=== PATIENT | male | born 1980 | race Caucasian/White ===

== ENCOUNTER 2018-08-11 19:52 | Inpatient (IN) | payer OTHER ==
--- NOTE | 2018-08-11 20:07 | PDOC ---
Rapid Medical Evaluation Chief Complaint: Headache Time Seen by Provider: 08/11/18 20:06 Medical Evaluation: 08/11/18 20:12 38 year old male with nausea, vomiting, headache, neck pain and now with fever. PE: patient alert ox3. sick appearing. A: fever / sepsis ? P: labs blood culture urine culture patient to ER for further management of care. Discharge Disposition - Diagnosis Fever Qualifiers: Fever type: unspecified Qualified Code(s): R50.9 - Fever, unspecified - Referrals - Patient Instructions - Post Discharge Activity
[2018-08-11] MEDS ORDERED: ACETAMINOPHEN 500 MG TABLET (FP) PO ONE (20:13)
[2018-08-11 20:14] VITALS: BMI 21.7
--- NOTE | 2018-08-11 20:36 | PDOC ---
History of Present Illness - General Chief Complaint: Headache Stated Complaint: FEVER/WEAKNESS Time Seen by Provider: 08/11/18 20:06 - History of Present Illness Initial Comments: 08/11/18 21:22 The patient is a 38 year old male with a history of Brugada's s/p pacemaker who presents for evaluation of fever, headache, and neck pain. The patient reports a 2 day history of worsening associated nausea, headache, and severe neck pain. The patient developed a high fever today and initially presented to an urgent care for which he was treated with a muscle relaxant. He states that he did not take the muscle relaxant and presented to the ED due to worsening symptoms. He states that any movement of his neck worsens his headache and reports fevers and chills as well. He reports some cough and nasal congestion but otherwise denies SOB, chest pain, sore throat, vomiting, abdominal pain, or changes with urination or bowel movements. Past History - Past Medical History Allergies/Adverse Reactions: Allergies Allergy/AdvReac Type Severity Reaction Status Date / Time No Known Allergies Allergy Verified 08/11/18 20:09 Cardiac Disorders: Yes (pacemaker/defibrillar 2016) COPD: No - Surgical History Cardiac Surgery: Yes (brugada syndrome) - Suicide/Smoking/Psychosocial Hx Smoking History: Current every day smoker Number of Cigarettes Smoked Daily: 20 Information on smoking cessation initiated: No Hx Alcohol Use: No Drug/Substance Use Hx: No Review of Systems - Review of Systems Comments:: 08/11/18 21:28 Constitutional: Fevers, chills, fatigue, malaise HEENT: Nasal congestion. Neck pain. No Rhinorrhea, visual changes Cardiovascular: No chest pain, syncope, palpitations, lightheadedness Respiratory: Non-productive cough. No SOB, Hemoptysis, Gastrointestinal: No Abdominal pain, Nausea, Vomiting, Constipation, Diarrhea, Melena Genitourinary: No Dysuria, Frequency, Urgency, Hesitancy, Hematuria, Flank pain Musculoskeletal: No arthralgia Skin: No rashes, itching, bruising, pallor Neurologic: Headache. No Dizziness, Numbness, Weakness, or Tingling Psychiatric: No Hallucinations. No SI or HI *Physical Exam - Vital Signs Last Vital Signs Temp Pulse Resp BP Pulse Ox 103.0 F H 96 H 16 134/90 100 08/11/18 20:10 08/11/18 20:10 08/11/18 20:10 08/11/18 20:10 08/11/18 20:10 - Physical Exam Comments: 08/11/18 21:31 General Appearance: Nourished. No Apparent Distress HEENT: EOMI, RAFFY. No Pharyngeal Erythema, Tonsillar Exudate, Tonsillar Erythema Neck: Nuchal rigidity noted on exam. No Cervical Lymphadenopathy Respiratory/Chest: Lungs Clear, Normal Breath Sounds. No Crackles, Rales, Rhonchi, Wheezing Cardiovascular: Regular Rhythm, Regular Rate. No Murmur, Gallops, Rubs Gastrointestinal/Abdominal: Normal Bowel Sounds, Soft. No Guarding, Rebound, Tenderness Musculoskeletal: No CVA Tenderness Extremity: Normal Capillary Refill Integumentary: Normal Color, Dry, Warm Neurologic: clinical nurse occupational medicine II-XII NML intact, Fully Oriented, Alert, Normal Mood/Affect, Normal Response, Motor Strength 5/5. Procedures - Additional Procedures Additional Procedures: lumbar puncture (3 drops obtained from Lumbar Puncture before flow of CSF stopped) Heart Score/ECG Review #1 ECG reviewed & interpreted by me at: 22:42 General ECG Interpretation: Sinus Rhythm, Normal Rate, Normal Intervals, No acute ischemic changes 08/11/18 22:42 Sinus Rhythm No Acute ST changes HR 96 QRS 92 QTc 434 ED Treatment Course - LABORATORY CBC & Chemistry Diagram: 08/11/18 21:30 08/11/18 21:30 Medical Decision Making - Medical Decision Making 08/11/18 21:32 The patient is a 38 year old male with a history of Brugada's s/p pacemaker who presents for evaluation of fever, headache, and neck pain. Differential includes but is not limited to: Sepsis, Pneumonia, Meningitis, Infectious, Metabolic Derangement. Given the patient's history and physical exam, we will obtain a cbc, cmp, troponin, lactate, blood cultures, UA, urine cultures, coags , chest plain film, head ct to evaluate further. We will treat with tylenol, iv fluids, decadron, vanc, ceftriaxone, asyclovir and continue to closely monitor and reassess while here in the ED. 08/11/18 23:54 CBC is unremarkable. CMP is unremarkable. Troponin is elevated to 0.68. Head CT demonstrates chronic sinusitis but is otherwise unremarkable as read by our radiologist. Chest plain film is unremarkable. Bedside Echo demonstrates normal cardiac contractility and is otherwise unremarkable. Lumbar Puncture was attempted and we obtained 3 drops of csf before flow stopped. CSF cell count demonstrates 1 wbc and 10 rbc. The patient reports some improvement in his symptoms. He does not have signs of NMS or seratonin syndrome on exam. It is unclear at this time as to the source of the patient's fever. He will require admission for further management. We will consult with cardiology regarding his elevated troponin. *DC/Admit/Observation/Transfer Diagnosis at time of Disposition: Elevated troponin Fever Qualifiers: Fever type: unspecified Qualified Code(s): R50.9 - Fever, unspecified Sepsis Qualifiers: Sepsis type: sepsis due to unspecified organism Qualified Code(s): A41.9 - Sepsis, unspecified organism - Discharge Dispostion Condition at time of disposition: Stable Decision to Admit order: Yes - Referrals - Patient Instructions - Post Discharge Activity
[2018-08-11] MEDS ORDERED: METOCLOPRAMIDE HCL INJECTION 10 MG/2 ML VIAL IVPUSH ONE (20:39)
[2018-08-11] MEDS ORDERED: SODIUM CHLORIDE 1,000 ML IV STA (20:46)
[2018-08-11] MEDS ORDERED: CEFTRIAXONE 2 GM-D5W BAG 2 GM/50 ML BAG IVPB ONE (21:06)
[2018-08-11] MEDS ORDERED: ACETAMINOPHEN 1000 MG/100 ML VIAL (NON FORMULARY) IVPB ONE (21:06)
[2018-08-11] MEDS ORDERED: DEXAMETHASONE SOD PHOSPHATE 10 MG/1 ML VIAL IVPUSH ONE (21:06)
[2018-08-11] MEDS ORDERED: VANCOMYCIN 1 GM in D5W (PRE-DOCKED) 1,000 MG/250 ML IVPB ONE (21:06)
[2018-08-11] MEDS ORDERED: ACYCLOVIR INJECTION 600 MG in DEXTROSE 5%-WATER - 100 ML IVPB ONE (21:07)
[2018-08-11] MEDS ORDERED: ACETAMINOPHEN INJECTION 100 ML IVPB ONE (21:15)
[2018-08-11] MEDS ORDERED: DEXAMETHASONE SOD PHOSPHATE 10 MG/1 ML VIAL ONE (21:15)
[2018-08-11] MEDS ORDERED: METOCLOPRAMIDE HCL INJECTION 10 MG/2 ML VIAL ONE (21:38)
--- NOTE | 2018-08-11 21:42 | PDOC ---
Documentation entered by Yoel Lai SCRIBE, acting as scribe for Guerda Shaikh DO. Guerda Shaikh DO: This documentation has been prepared by the Ming schultz Nirvannie, SCRIBE, under my direction and personally reviewed by me in its entirety. I confirm that the documentation accurately reflects all work, treatment, procedures, and medical decision making performed by me. Attending Attestation - Resident Resident Name: Mane Davenport - ED Attending Attestation I have performed the following: I have examined & evaluated the patient, The case was reviewed & discussed with the resident, I agree w/resident's findings & plan - HPI HPI: 08/11/18 22:30 The patient is a 38 year old male, with a significant past medical history of Brugada (s/p pacemaker) and vertigo, who presents to the emergency department with, 2 days of worsening nausea, headache, and neck pain with new onset of fever (Tmax 103F). Patient notes prior to the onset of his symptoms approximately 4 days ago he had diarrhea for 1 day. Patient notes going to urgent care at which time he was diagnosed on a muscle relaxant. He notes secondary to the onset of fevers and chills he reported to the ED for further evaluation. He denies any recent diarrhea or constipation. He denies any recent chest pain. He denies any recent dysuria, frequency, urgency or hematuria. Allergies: NKDA - Physicial Exam PE: 08/11/18 22:30 Constitutional: +Hot to touch. Awake, alert, oriented. No acute distress. Head: Normocephalic. Atraumatic Eyes: +Injected sclera. PERRL. EOMI. ENT: Mucous membranes are moist and intact. Posterior pharynx without exudates or erythema. Uvula midline. Neck: +Nuchal rigidity. Cardiovascular: +Tachycardic Distal pulses are 2+ and symmetric. Pulmonary/Chest: No evidence of respiratory distress. Clear to auscultation bilaterally No wheezing, rales or rhonchi. Abdominal: Soft and non-distended. There is no tenderness. No rebound, guarding or rigidity. No organomegaly. No palpable masses. Good bowel sounds. Back: No CVA tenderness. Musculoskeletal: No edema. No cyanosis. No clubbing. Full range of motion in all extremities. No calf tenderness. Radial/pedal pulses are intact and 2+ bilaterally Skin: Skin is warm and dry. No petechiae. No purpura. Neurological: +Brudzinski's sign. Negative Kernig sign. Alert and oriented to person, place, and time. Cranial nerves II-XII are grossly intact. Normal speech. Strength is grossly symmetric. No sensory deficits. Psychiatric: Good eye contact. Normal interaction, affect and behavior. - Critical Care Time Total Critical Care Time: 35 Critical Care Statement: The care of this patient involved high complexity decision making to prevent further life threatening deterioration of the patient 's condition and/or to evaluate & treat vital organ system(s) failure or risk of failure. - Medical Decision Making 08/11/18 21:37 I, Dr. Guerda Shaikh, DO, attest that this document has been prepared under my direction and personally reviewed by me in its entirety. I further attest, that it accurately reflects all work, treatment, procedures and medical decision -making performed by me. 08/11/18 21:37 a/p: 38yo male with stern and neck pain x 3 days and a fever today -nuchal rigidity on exam -concern for meningitis -labs ordered, flu ordered, cxr, ua -ct head -seen at Urgent care and given a muscle relaxer for the neck pain - states developed the fever right after urgent care -cultures ordered -will start decadron, abx, antivirals -will perform LP -will monitor and reassess -ivf hydraiton, tylenol 08/11/18 21:40 flu negative 08/11/18 21:42 hx of brugada, cxr clear, defibrillator in place 08/11/18 23:17 only 3 drops of clear spinal fluid removed, then became dry tap trop 0.68 will need admission pending labs 11:44pm Call placed to Dr. Andersen, hydraulic jack mechanic button tufting machine operator, made aware Dr. Bates button tufting machine operator, awaiting call back. 08/12/18 00:06 elevated trop ua negative flu negative cxr clear 1wbc on lp, 10rbc chronic sinusitis on ct cultures pending 08/12/18 00:09 no NMS signs, no serotonin syndrome 08/12/18 00:18 case discussed with MARKOS who accepts pt to service *DC/Admit/Observation/Transfer Diagnosis at time of Disposition: Elevated troponin Fever Qualifiers: Fever type: unspecified Qualified Code(s): R50.9 - Fever, unspecified Sepsis Qualifiers: Sepsis type: sepsis due to unspecified organism Qualified Code(s): A41.9 - Sepsis, unspecified organism - Discharge Dispostion Condition at time of disposition: Guarded Decision to Admit order: Yes - Referrals - Patient Instructions - Post Discharge Activity Heart Score/ECG Review - ECG Intrepretation Comment:: 08/11/18 22:40 sinus at 96, nl axis, nl interval, t wave flattening in the inferior leads, no acute st changes
[2018-08-11 22:29] LABS: BASO % 0.3 % (0-2.0); EOS % 0.1 % (0-4.5); HEMATOCRIT 37.1 % (35.4-49); HEMOGLOBIN 12.9 GM/dL (11.7-16.9); MCH 33.3 pg (25.7-33.7); MCHC 34.8 g/dl (32.0-35.9); MEAN CELL VOLUME 95.7 fl (80-96); MEAN PLT VOLUME 7.6 fl (7.5-11.1); MONO % 5.5 % (3.8-10.2); NEUT % 77.1 % (42.8-82.8); PLATELET COUNT 166 K/MM3 (134-434); RBC 3.88 M/mm3 (4.00-5.60); RDW 13.7 % (11.9-15.9); WHITE BLOOD COUNT 5.7 K/mm3 (4.0-10.0)
[2018-08-11 22:41] LABS: INR 1.17 (0.83-1.09); PROTHROMBIN TIME (PATIENT) 13.8 SEC (9.7-13.0)
[2018-08-11 22:44] LABS: ACTIVATED PTT 32.9 SECONDS (25.2-36.5)
[2018-08-11 22:54] LABS: ALBUMIN 3.2 g/dl (3.4-5.0); ALK PHOS 56 U/L (45-117); ANION GAP 6 MMOL/L (8-16); BILIRUBIN,TOTAL 0.5 mg/dL (0.2-1); BLOOD UREA NITROGEN 16 mg/dL (7-18); CALCIUM 7.9 mg/dL (8.5-10.1); CHLORIDE 100 mmol/L (98-107); CO2 27 mmol/L (21-32); CREATININE 0.6 mg/dL (0.55-1.3); GLUCOSE,RANDOM 83 mg/dL (74-106); POTASSIUM 3.8 mmol/L (3.5-5.1); SGOT/AST 20 U/L (15-37); SGPT/ALT 23 U/L (13-61); SODIUM 134 mmol/L (136-145); TOT PROT 6.6 g/dl (6.4-8.2)
[2018-08-11] MEDS ORDERED: LIDOCAINE HCL 1%, 10 MG/ML (20ML VIAL) ONE (22:56)
[2018-08-11] MEDS ORDERED: CEFTRIAXONE 2 GM/100 ML BAG IVPB ONE (23:39)
[2018-08-11 23:49] LABS: CSF APPEARANCE CLEAR; CSF COLOR COLORLESS; CSF WBC 1
[2018-08-12] LABS: PH,URINE 5.5 (5.0-8.0); URINE APPEARANCE CLEAR; URINE BILIRUBIN NEGATIVE (NEGATIVE); URINE COLOR YELLOW; URINE GLUCOSE (UA) NEGATIVE (NEGATIVE); URINE KETONE NEGATIVE (NEGATIVE); URINE LEUK ESTERASE NEGATIVE (NEGATIVE); URINE NITRITE NEGATIVE (NEGATIVE); URINE PROTEIN NEGATIVE (NEGATIVE)
[2018-08-12 00:09] LABS: COCAINE, UR NEGATIVE ng/ml (CUTOFF=300); METHADONE, UR NEGATIVE ng/ml (CUTOFF=300); OPIATES, URI NEGATIVE ng/ml (CUTOFF=300); PHENCYCLIDINE,URINE NEGATIVE ng/ml (CUTOFF=25); URINE AMPHETAMINES NEGATIVE ng/ml (CUTOFF=500); URINE BARBITURATES NEGATIVE ng/ml (CUTOFF=200); URINE BENZODIAZEPINES NEGATIVE ng/ml (CUTOFF=200)
--- NOTE | 2018-08-12 00:18 | PN ---
Teaching Attending Note Name of Resident: Mane Lucas ATTENDING PHYSICIAN STATEMENT I saw and evaluated the patient. I reviewed the resident's note and discussed the case with the resident. I agree with the resident's findings and plan as documented. SUBJECTIVE: Patient is a 38 year old man with a PMH of Brugada syndrome (s/p pacemaker), marijuana use and tobacco use who presents for evaluation of fever, headache, and neck pain. The patient reports a 2 day history of worsening associated nausea, headache, and severe neck pain. The patient developed a high fever today and initially presented to an urgent care for which he was treated with a muscle relaxant. He states that he did not take the muscle relaxant and presented to the ED due to worsening symptoms. He states that any movement of his neck worsens his headache and reports fevers and chills as well. Also had a bout of chest tightness in the ER. He reports some cough and nasal congestion but otherwise denies SOB, sore throat, vomiting, abdominal pain, or changes with urination or bowel movements. LP was done in he ER and he was started on empiric antibiotics for meningitis. OBJECTIVE: Alert Vital Signs Period Temp Pulse Resp BP Sys/Stewart Pulse Ox Last 24 Hr 103.0 F 96 16 134/90 100 HEENT: No Jaundice, eye redness or discharge, PERRLA, EOMI. Normocephalic, atraumatic. External ears are normal and hearing is grossly intact. No nasal discharge. Neck: Neck stiffness with tenderness on movement. No palpable adenopathy or thyromegaly. No JVD Chest: Good effort. Clear to auscultation and percussion. Heart: Regular. No S3, rub or murmur Abdomen: Not distended, soft, nontender and no HSM. No rebound or guarding. Normal bowel sounds. Ext: Peripheral pulses intact. No leg edema. Skin: Warm and dry. No petechiae, rash or ecchymosis. Neuro: Alert. Oriented x3. CN 2-12 grossly intact. Sensation grossly intact in all four extremities and DTR are symmetric. Psych: Appropriate mood and affect. Good insight. Current Medications Generic Name Dose Route Start Last Admin Trade Name Freq PRN Reason Stop Dose Admin Enoxaparin Sodium 40 mg 08/12/18 10:00 Lovenox - SQ DAILY HAJA Abnormal Lab Results 08/11/18 08/11/18 08/11/18 21:30 21:30 21:30 RBC 3.88 L PT with INR 13.80 H INR 1.17 H Sodium 134 L Anion Gap 6 L Calcium 7.9 L Troponin I Albumin 3.2 L Ur Specific Call U Marijuana (THC) Screen 08/11/18 08/11/18 08/11/18 21:30 23:35 23:35 RBC PT with INR INR Sodium Anion Gap Calcium Troponin I 0.68 H* Albumin Ur Specific Call 1.009 L U Marijuana (THC) Screen Positive A* ASSESSMENT AND PLAN: 1. Rule out Meningitis - LP done. Flu swab is negative. Presentation is atypical , but has been started on Vancomycin, Rocephin and Acyclovir pending CSF analysis. Also got dexamethasone in the ER. Head CT shows chronic sinusitis. Will get CT of neck (soft tissue and C-spine). Consult ID and neurology. 2. Hypoalbuminemia - Possibly due to combined effects of malnutrition and inflammation associated with comorbid chronic conditions. Will ensure adequate dietary protein intake and also consult heater planer operator. 3. Elevated troponin - No changes of ischemia on EKG. Admit to telemetry, trend troponin, get ECHO and consult cardiology. 4. DVT prophylaxis - Lovenox 40 mg SQ q 24 hours. 5. Advance directives - Full code
[2018-08-12] MEDS ORDERED: VANCOMYCIN 1 GRAM (PRE-DOCKED) 1,000 MG/250 ML BAG IVPB ONE (00:35)
--- NOTE | 2018-08-12 01:12 | HP ---
CHIEF COMPLAINT: fever, neck pain PCP: HISTORY OF PRESENT ILLNESS: Patient is a 38 y/o M w/ PMHx Brugada's syndrome s/p PPM in 2016 p/w 2-3 day h/ o headache, severe neck pain, nausea, developed high fever today which prompted ED visit. Had seen urgent care and was prescribed muscle relaxant which he did not take. Febrile to 103, HR 96, otherwise stable vitals on presentation. Toxic appearing on presentation w/ pronounced nuchal rigidity, pain on flexion, and photophobia per ED sign out. LP was performed, retrieved only a few drops of CSF , cell counts 1 WBC and 10 RBC. Tox screen positive for cannabis (Pt admitted to use). Initial troponin 0.68. EKG NSR with normal intervals and QTc. POC echocardiogram was normal per ED signout. Cultures pending. Pt affirms use of haldol and Zyprexa in for issues related to depression but denies any recent use of neuroleptics or anti-depressants, no changes in diet or consumption of high-tyramine foods. Pt affirms "chest tightness" associated with exacerbations of neck pain. Given Acyclovir, ceftriaxone, vancomycin dexamethasone, Ofirmev, Reglan, NS bolus in ED. Recent Travel: PAST MEDICAL HISTORY: As per HPI PAST SURGICAL HISTORY: Social History: Smoking: daily ~ 20 cigarettes Alcohol: no Drugs: cannabis Family History: Allergies No Known Allergies Allergy (Verified 08/11/18 20:09) HOME MEDICATIONS: REVIEW OF SYSTEMS As per HPI PHYSICAL EXAMINATION Vital Signs - 24 hr 08/11/18 20:10 Temperature 103.0 F H Pulse Rate 96 H Respiratory 16 Rate Blood Pressure 134/90 O2 Sat by Pulse 100 Oximetry (%) GENERAL: A&Ox3, in significant distress HEAD: NC/AT EYES: +photophobia, PERRLA, EOMI EARS, NOSE, THROAT: Ears normal, nares patent, oropharynx clear without exudates. Moist mucous membranes. NECK: significant rigidity and pain with any motion of neck, pain greatest with flexion, negative Brudzinski's sign LUNGS: CTA b/l HEART: borderline tachycardic no m/r/g ABDOMEN: +bs, soft, NT, ND MUSCULOSKELETAL: Normal range of motion at all joints. No bony deformities or tenderness. No CVA tenderness. UPPER EXTREMITIES: 2+ pulses, warm, well-perfused. No cyanosis. No clubbing. No peripheral edema. LOWER EXTREMITIES: 2+ pulses, warm, well-perfused. No calf tenderness. No peripheral edema. 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 Laboratory Results - last 24 hr 08/11/18 08/11/18 08/11/18 20:15 21:30 21:30 WBC 5.7 RBC 3.88 L Hgb 12.9 Hct 37.1 MCV 95.7 MCH 33.3 MCHC 34.8 RDW 13.7 Plt Count 166 MPV 7.6 Absolute Neuts (auto) 4.4 Neutrophils % 77.1 Lymphocytes % 17.0 Monocytes % 5.5 Eosinophils % 0.1 Basophils % 0.3 Nucleated RBC % 0 PT with INR 13.80 H INR 1.17 H PTT (Actin FS) 32.9 Sodium Potassium Chloride Carbon Dioxide Anion Gap BUN Creatinine Creat Clearance w eGFR Random Glucose Lactic Acid Calcium Total Bilirubin AST ALT Alkaline Phosphatase Troponin I Total Protein Albumin Urine Color Urine Appearance Urine pH Ur Specific Orestes Urine Protein Urine Glucose (UA) Urine Ketones Urine Blood Urine Nitrite Urine Bilirubin Urine Urobilinogen Ur Leukocyte Esterase CSF Appearance CSF Color CSF WBC CSF RBC CSF Neutrophils CSF Lymphocytes CSF Eosinophils CSF Basophils CSF Macrophages CSF Plasma Cells CSF Diff Comment CSF Comment CSF Glucose CSF Total Protein Opiates Screen Methadone Screen Barbiturate Screen Phencyclidine Screen Ur Amphetamines Screen MDMA (Ecstasy) Screen Benzodiazepines Screen Cocaine Screen U Marijuana (THC) Screen Influenza A (Rapid) Negative Influenza B (Rapid) Negative 08/11/18 08/11/18 08/11/18 21:30 21:30 21:30 WBC RBC Hgb Hct MCV MCH MCHC RDW Plt Count MPV Absolute Neuts (auto) Neutrophils % Lymphocytes % Monocytes % Eosinophils % Basophils % Nucleated RBC % PT with INR INR PTT (Actin FS) Sodium 134 L Potassium 3.8 Chloride 100 Carbon Dioxide 27 Anion Gap 6 L BUN 16 Creatinine 0.6 Creat Clearance w eGFR 150.78 Random Glucose 83 Lactic Acid 0.8 Calcium 7.9 L Total Bilirubin 0.5 AST 20 ALT 23 Alkaline Phosphatase 56 Troponin I 0.68 H* Total Protein 6.6 Albumin 3.2 L Urine Color Urine Appearance Urine pH Ur Specific Orestes Urine Protein Urine Glucose (UA) Urine Ketones Urine Blood Urine Nitrite Urine Bilirubin Urine Urobilinogen Ur Leukocyte Esterase CSF Appearance CSF Color CSF WBC CSF RBC CSF Neutrophils CSF Lymphocytes CSF Eosinophils CSF Basophils CSF Macrophages CSF Plasma Cells CSF Diff Comment CSF Comment CSF Glucose CSF Total Protein Opiates Screen Methadone Screen Barbiturate Screen Phencyclidine Screen Ur Amphetamines Screen MDMA (Ecstasy) Screen Benzodiazepines Screen Cocaine Screen U Marijuana (THC) Screen Influenza A (Rapid) Influenza B (Rapid) 08/11/18 08/11/18 08/11/18 23:15 23:35 23:35 WBC RBC Hgb Hct MCV MCH MCHC RDW Plt Count MPV Absolute Neuts (auto) Neutrophils % Lymphocytes % Monocytes % Eosinophils % Basophils % Nucleated RBC % PT with INR INR PTT (Actin FS) Sodium Potassium Chloride Carbon Dioxide Anion Gap BUN Creatinine Creat Clearance w eGFR Random Glucose Lactic Acid Calcium Total Bilirubin AST ALT Alkaline Phosphatase Troponin I Total Protein Albumin Urine Color Yellow Urine Appearance Clear Urine pH 5.5 Ur Specific Orestes 1.009 L Urine Protein Negative Urine Glucose (UA) Negative Urine Ketones Negative Urine Blood Negative Urine Nitrite Negative Urine Bilirubin Negative Urine Urobilinogen 1.0 Ur Leukocyte Esterase Negative CSF Appearance Clear CSF Color Colorless CSF WBC 1 CSF RBC 10 CSF Neutrophils No Result Required. CSF Lymphocytes No Result Required. CSF Eosinophils No Result Required. CSF Basophils No Result Required. CSF Macrophages No Result Required. CSF Plasma Cells No Result Required. CSF Diff Comment No Result Required. CSF Comment No Result Required. CSF Glucose CSF Total Protein Opiates Screen Negative Methadone Screen Negative Barbiturate Screen Negative Phencyclidine Screen Negative Ur Amphetamines Screen Negative MDMA (Ecstasy) Screen Negative Benzodiazepines Screen Negative Cocaine Screen Negative U Marijuana (THC) Screen Positive A* Influenza A (Rapid) Influenza B (Rapid) ASSESSMENT/PLAN: 38 y/o M w/ PMHx Brugada's syndrome s/p PPM in 2016 p/w 2-3 day h/o headache, severe neck pain, nausea, developed high fever today presenting at 103 #A: -r/o meningitis -LP results benign -significant troponemia -given acyclovir, ceftriaxone, vancomycin, reglan, dexamethasone in ED -minimal suspicion of NMS/Serotonin syndrome #P: -CT neck soft tissue and c-spine -MRI brain w/ and w/o -trend troponins -repeat EKG -cardiology consulted by ED -no IVF -f/u BMP, Mg, Phos -regular diet -Lovenox for DVT PPx -full code -admit to med/surg Visit type - Emergency Visit Emergency Visit: Yes Care time: The patient presented to the Emergency Department on the above date and was hospitalized for further evaluation of their emergent condition. - New Patient This patient is new to me today: Yes Date on this admission: 08/12/18 - Critical Care Critical Care patient: No
[2018-08-12] MEDS ORDERED: PT OWN MED DRAWER 7, Y5N ONE (02:58)
[2018-08-12 06:22] LABS: BASO % 0.1 % (0-2.0); HEMATOCRIT 38.1 % (35.4-49); HEMOGLOBIN 12.9 GM/dL (11.7-16.9); LYMPH % 9.1 % (8-40); MCH 32.4 pg (25.7-33.7); MCHC 33.9 g/dl (32.0-35.9); MEAN CELL VOLUME 95.7 fl (80-96); MEAN PLT VOLUME 7.7 fl (7.5-11.1); MONO % 4.3 % (3.8-10.2); NEUT % 86.5 % (42.8-82.8); PLATELET COUNT 159 K/MM3 (134-434); RBC 3.98 M/mm3 (4.00-5.60); RDW 13.8 % (11.9-15.9); WHITE BLOOD COUNT 7.8 K/mm3 (4.0-10.0)
[2018-08-12 06:55] LABS: ANION GAP 10 MMOL/L (8-16); BLOOD UREA NITROGEN 13 mg/dL (7-18); CALCIUM 7.6 mg/dL (8.5-10.1); CHLORIDE 108 mmol/L (98-107); CO2 22 mmol/L (21-32); CREATININE 0.7 mg/dL (0.55-1.3); GLUCOSE,RANDOM 156 mg/dL (74-106); MAGNESIUM 2.3 mg/dL (1.8-2.4); PHOSPHOROUS 2.7 mg/dL (2.5-4.9); SODIUM 139 mmol/L (136-145)
[2018-08-12 09:49] LABS: PH,URINE 6.5 (5.0-8.0); URINE APPEARANCE CLEAR; URINE BILIRUBIN NEGATIVE (NEGATIVE); URINE COLOR YELLOW; URINE GLUCOSE (UA) NEGATIVE (NEGATIVE); URINE KETONE NEGATIVE (NEGATIVE); URINE LEUK ESTERASE NEGATIVE (NEGATIVE); URINE NITRITE NEGATIVE (NEGATIVE); URINE PROTEIN NEGATIVE (NEGATIVE)
[2018-08-12 10:04] LABS: VENOUS PC02 32.5 mmHg (41-51); VENOUS PH 7.47 (7.31-7.41); VENOUS PO2 59.4 mmHg (30-40)
--- NOTE | 2018-08-12 10:09 | CON.CARD ---
Consult Consult Specialty:: Cardiology Referred by:: Dr. Desouza Reason for Consultation:: Brugada Syndrome and ICD, + TNI - History of Present Illness Chief Complaint: fever, headache History of Present Illness: The patient is a 38 year old male, with a significant past medical history of Brugada (s/p ICD) and vertigo, who presents to the emergency department with, 2 days of worsening nausea, headache, and neck pain with new onset of fever (Tmax 103F). Patient notes prior to the onset of his symptoms approximately 4 days ago he had diarrhea for 1 day. Patient notes going to urgent care at which time he was diagnosed on a muscle relaxant. He notes secondary to the onset of fevers and chills he reported to the ED for further evaluation. He denies any recent diarrhea or constipation. He denies any recent chest pain. He denies any recent dysuria, frequency, urgency or hematuria. Denies palpitations or ICD shocks. LP was performed in ER, negative. He has been cultured and receiving IV abx as per medical team. - History Source History Provided By: Patient, Medical Record - Past Medical History Cardio/Vascular: Yes: Other (Brugada Syndrome s/p ICD- details unclear at this time) Gastrointestinal: No: Ascites, Cancer, Constipation, Crohn's Disease, Diverticulitis, Diverticulosis, Esophageal Varices, Gastritis, GERD, GI Bleed, Hemorrhoids, Hiatal Hernia, Inflamatory Bowel Disease, Irritable Bowel Disease, Pancreatitis, Peptic Ulcer Disease, Ulcerative Colitis, Other Hepatobiliary: No: Cirrhosis, Cholelithiasis, Cholecystitis, Choledocholithiasis , Hepatitis A, Hepatitis B, Hepatitis C, Other Renal/: No: Renal Failure, Renal Inusuff, BPH, Cancer, Hematuria, Hemodialysis , Neurogenic Bladder, Renal Calculi, UTI, Other Heme/Onc: No: Anemia, B12 Deficiency, Bleeding Disorder, Cancer, Current Chemotherapy, Current Radiation Therapy, Hemochromatosis, Hypercoaguable State, Myeloproliferative Synd, Sickle Cell Disease, Sickle Cell Trait, Thrombocytopenia, Other Musculoskeletal: No: Bursitis, Chronic low back pain, Hemiparesis, Hemiplegia, Osteoarthritis, Paraplegia, Other Rheumatology: No: Fibromyalgia, Gout, Lupus, Rheumatoid Arthritis, Sarcoidosis, Vasculitis, Other - Alcohol/Substance Use Hx Alcohol Use: No - Smoking History Smoking history: Current every day smoker Aproximately how many cigarettes per day: 20 - Social History History of Recent Travel: No Home Medications - Allergies Allergies/Adverse Reactions: Allergies Allergy/AdvReac Type Severity Reaction Status Date / Time No Known Allergies Allergy Verified 08/11/18 20:09 - Home Medications Home Medications: Ambulatory Orders NK [No Known Home Medication] 08/12/18 Family Disease History - Family Disease History Family History: Unremarkable (Family members with Brugada syndrome) Review of Systems - Review of Systems Constitutional: reports: Chills, Fever Eyes: reports: Photophobia HENT: reports: Other (headache) Cardiovascular: reports: No Symptoms Respiratory: reports: No Symptoms Gastrointestinal: reports: Diarrhea Genitourinary: reports: No Symptoms Musculoskeletal: reports: Muscle Pain Integumentary: reports: No Symptoms Neurological: reports: No Symptoms Endocrine: reports: No Symptoms Hematology/Lymphatic: reports: No Symptoms Psychiatric: reports: No Symptoms Vital Signs: Vital Signs Temperature 98.0 F 08/12/18 06:30 Pulse Rate 73 08/12/18 06:30 Respiratory Rate 16 08/12/18 06:30 Blood Pressure 107/60 08/12/18 06:30 O2 Sat by Pulse Oximetry (%) 99 08/12/18 06:30 Constitutional: Yes: No Distress Eyes: Yes: Conjunctiva Clear, EOM Intact HENT: Yes: Normocephalic Neck: Yes: Trachea Midline Respiratory: Yes: CTA Bilaterally Gastrointestinal: Yes: Soft Cardiovascular: Yes: Regular Rate and Rhythm JVD: No Carotid Bruit: No PMI: Non-Displaced Edema: No Neurological: Yes: Alert, Oriented ...Motor Strength: WNL - Other Data Labs, Other Data: CBC, BMP 08/12/18 05:30 08/12/18 05:30 INR, PTT INR 1.17 (0.83-1.09) H 08/11/18 21:30 Troponin, BNP 08/11/18 08/11/18 08/12/18 21:30 23:55 09:12 Troponin I 0.68 H* 0.43 H 0.33 H Troponin, BNP 08/11/18 08/11/18 08/12/18 21:30 23:55 09:12 Troponin I 0.68 H* 0.43 H 0.33 H Echo: Pending Imaging - Results Cat Scan: Report Reviewed EKG: Image Reviewed (NSR with RSR' V1 fitting a type I Brugada pattern) Problem List - Problems (1) Fever Code(s): R50.9 - FEVER, UNSPECIFIED Qualifiers: Fever type: unspecified Qualified Code(s): R50.9 - Fever, unspecified (2) Sepsis Code(s): A41.9 - SEPSIS, UNSPECIFIED ORGANISM Qualifiers: Sepsis type: sepsis due to unspecified organism Qualified Code(s): A41.9 - Sepsis, unspecified organism (3) Elevated troponin Code(s): R74.8 - ABNORMAL LEVELS OF OTHER SERUM ENZYMES (4) Brugada syndrome Code(s): I49.8 - OTHER SPECIFIED CARDIAC ARRHYTHMIAS Assessment/Plan IMP: 1. Fever, suspected SIRS/ early sepsis: etiology presently unclear 2. Elevated TnI likely secondary to systemic inflammatory response in setting of #1 3. History of Brugada Sydrome s/p ICD REC: 1. No specific treatment for elevated TnI other than supportive measures: hydration, IV abx and treatment of underlying infection. Patient is asx with no ischemic ECG changes; unlikely represents an acute coronary syndrome. 2. Echo for evaluation of LV function. 3. Telemetry monitoring as patients with Brugada syndrome may be vulnerable to ventricular arrhythmias during times of fever/infection 4. Monitor electrolytes daily and keep K+ and Mg2+ > 4 and 2 respectively. 5. Daily ECG Will follow Thank you.
[2018-08-12] MEDS: ENOXAPARIN NA (PORCINE) 40 MG/0.4 ML DISP.SYRIN SQ SCH (10:25)
--- NOTE | 2018-08-12 10:28 | EKG ---
Test Reason : Blood Pressure : / mmHG Vent. Rate : 096 BPM Atrial Rate : 096 BPM P-R Int : 176 ms QRS Dur : 092 ms QT Int : 344 ms P-R-T Axes : 054 067 030 degrees QTc Int : 434 ms NORMAL SINUS RHYTHM RSR' OR QR PATTERN IN V1 SUGGESTS RIGHT VENTRICULAR CONDUCTION DELAY Brugada pattern, type 1 NO PREVIOUS ECGS AVAILABLE Confirmed by DIMITRI LANDON MD ([id number]) on 08/12/2018 10:28:25 AM Referred By: Confirmed By:DIMITRI LANDON MD
--- NOTE | 2018-08-12 11:43 | ECHO ---
Name: NIRMALA FORTUNE Exam:Adult Echocardiogram Study Date: 08/12/2018 09:51 AM Age: 38 yrs Reason For Study: SEPSIS Height: 66 in Weight: 135 lb BSA: 1.7 m2 MMode/2D Measurements & Calculations IVSd: 0.78 cm Ao root diam: 2.6 cm LVIDd: 5.4 cm LA dimension: 3.2 cm LVIDs: 3.8 cm LVPWd: 0.71 cm EDV(Teich): 140.0 ml LVOT diam: 2.1 cm ESV(Teich): 61.1 ml Doppler Measurements & Calculations MV E max macario: 80.5 cm/sec MR max macario: 368.4 cm/sec MV A max macario: 78.0 cm/sec MR max P.4 mmHg MV E/A: 1.0 MV dec time: 0.14 sec TR max macario: 180.9 cm/sec PI end-d macario: 92.3 cm/sec TR max P.2 mmHg Med Peak E' Macario: 7.7 cm/sec Med E/e': 10.4 Lat Peak E' Macario: 10.3 cm/sec Lat E/e': 7.8 Left Ventricle Left ventricular systolic function is normal. Ejection Fraction = 50-55%. Left Ventricular Filling pa ttern is normal for age. Right Ventricle There is a pacemaker lead in the right ventricle. The right ventricular systolic function is normal. Atria Normal left and right atrial size and function. Mitral Valve The mitral valve is normal in structure and function. There is no mitral valve stenosis. There is mil d mitral regurgitation. Tricuspid Valve The tricuspid valve is normal in structure and function. There is mild tricuspid regurgitation. Aortic Valve The aortic valve opens well. No hemodynamically significant valvular aortic stenosis. No aortic regur gitation is present. Pulmonic Valve The pulmonic valve is not well seen, but is grossly normal. There is no pulmonic valvular stenosis. T race to mild pulmonic valvular regurgitation. Great Vessels The aortic root is normal size. Pericardium/Pleura There is no pericardial effusion. Interpretation Summary Left ventricular systolic function is normal. Ejection Fraction = 50-55%. There is a pacemaker lead in the right ventricle. There is mild mitral regurgitation. There is mild tricuspid regurgitation. There is no pericardial effusion. MD Guerrier *Paulo 08/12/2018 11:42 AM
--- NOTE | 2018-08-12 15:54 | PN ---
Physical Exam: SUBJECTIVE: Patient seen and examined. Pt. states that he has neck pain worsened by movement of his head, proximal lower extremity flexion, light, and walking. He states it feels like "his brain is shaking when" the pain comes. It radiates bilaterally up the neck to Pterion (L>R). Pt. endorses associated intermittent pain in the upper extremities that radiate up to the pterion. Pt. states that he has been nauseous w/o emesis, having subjective fevers and chills over the last 2-3days, loose stool, shortness of breath, and drooping of the eyes. Of note Pt. states he is an avid camper and was out by [facility] 4 days ago camping overnight. Pt. states aki the has had a Pneumonia vaccine and a Flu vaccine and denies any sick contacts. Pt. denies feeling any tick or bug bites while camping or after. OBJECTIVE: Vital Signs Period Temp Pulse Resp BP Sys/Stewart Pulse Ox Last 24 Hr 98.0 F-103.0 F 73-96 16-16 107-134/60-90 99-100 GENERAL: The patient is awake, alert, and fully oriented, in moderate distress 2 /2 pain. HEAD: Normal with no signs of trauma. EYES: PERRL, extraocular movements intact, sclera anicteric, conjunctiva clear. No ptosis. ENT: Ears normal, nares patent, oropharynx clear without exudates, moist mucous membranes. NECK: Tenderness to neck when moving from side to side LUNGS: Breath sounds equal, clear to auscultation bilaterally, no wheezes, no crackles, no accessory muscle use. HEART: Regular rate and rhythm, S1, S2 without murmur, rub or gallop. ABDOMEN: Soft, nontender, nondistended, normoactive bowel sounds, no guarding, no rebound EXTREMITIES: 2+ radial pulses, warm, no calf tenderness, well-perfused, no edema. NEUROLOGICAL: Cranial nerves II through XII grossly intact. Normal speech, gait not observed. PSYCH: Normal mood, normal affect. SKIN: Warm, dry, normal turgor, no rashes or lesions noted Laboratory Results - last 24 hr 08/11/18 08/11/18 08/11/18 05:30 07:30 20:15 WBC RBC Hgb Hct MCV MCH MCHC RDW Plt Count MPV Absolute Neuts (auto) Neutrophils % Lymphocytes % Monocytes % Eosinophils % Basophils % Nucleated RBC % PT with INR INR PTT (Actin FS) VBG pH POC VBG pCO2 POC VBG pO2 VBG HCO3 VBG O2 Sat (Rodriguez) VBG Base Excess Sodium Potassium Chloride Carbon Dioxide Anion Gap BUN Creatinine Creat Clearance w eGFR Random Glucose Lactic Acid 1.8 Calcium Phosphorus Magnesium Total Bilirubin AST ALT Alkaline Phosphatase Troponin I Total Protein Albumin TSH Urine Color Yellow Urine Appearance Clear Urine pH 5.5 Ur Specific [place] 1.009 L Urine Protein Negative Urine Glucose (UA) Negative Urine Ketones Negative Urine Blood Negative Urine Nitrite Negative Urine Bilirubin Negative Urine Urobilinogen 1.0 Ur Leukocyte Esterase Negative CSF Appearance CSF Color CSF WBC CSF RBC CSF Neutrophils CSF Lymphocytes CSF Eosinophils CSF Basophils CSF Macrophages CSF Plasma Cells CSF Diff Comment CSF Comment CSF Glucose CSF Total Protein Opiates Screen Methadone Screen Barbiturate Screen Phencyclidine Screen Ur Amphetamines Screen MDMA (Ecstasy) Screen Benzodiazepines Screen Cocaine Screen U Marijuana (THC) Screen Influenza A (Rapid) Negative Influenza B (Rapid) Negative 08/11/18 08/11/18 08/11/18 21:30 21:30 21:30 WBC 5.7 RBC 3.88 L Hgb 12.9 Hct 37.1 MCV 95.7 MCH 33.3 MCHC 34.8 RDW 13.7 Plt Count 166 MPV 7.6 Absolute Neuts (auto) 4.4 Neutrophils % 77.1 Lymphocytes % 17.0 Monocytes % 5.5 Eosinophils % 0.1 Basophils % 0.3 Nucleated RBC % 0 PT with INR 13.80 H INR 1.17 H PTT (Actin FS) 32.9 VBG pH POC VBG pCO2 POC VBG pO2 VBG HCO3 VBG O2 Sat (Rodriguez) VBG Base Excess Sodium 134 L Potassium 3.8 Chloride 100 Carbon Dioxide 27 Anion Gap 6 L BUN 16 Creatinine 0.6 Creat Clearance w eGFR 150.78 Random Glucose 83 Lactic Acid Calcium 7.9 L Phosphorus Magnesium Total Bilirubin 0.5 AST 20 ALT 23 Alkaline Phosphatase 56 Troponin I Total Protein 6.6 Albumin 3.2 L TSH Urine Color Urine Appearance Urine pH Ur Specific [place] Urine Protein Urine Glucose (UA) Urine Ketones Urine Blood Urine Nitrite Urine Bilirubin Urine Urobilinogen Ur Leukocyte Esterase CSF Appearance CSF Color CSF WBC CSF RBC CSF Neutrophils CSF Lymphocytes CSF Eosinophils CSF Basophils CSF Macrophages CSF Plasma Cells CSF Diff Comment CSF Comment CSF Glucose CSF Total Protein Opiates Screen Methadone Screen Barbiturate Screen Phencyclidine Screen Ur Amphetamines Screen MDMA (Ecstasy) Screen Benzodiazepines Screen Cocaine Screen U Marijuana (THC) Screen Influenza A (Rapid) Influenza B (Rapid) 08/11/18 08/11/18 08/11/18 21:30 21:30 23:15 WBC RBC Hgb Hct MCV MCH MCHC RDW Plt Count MPV Absolute Neuts (auto) Neutrophils % Lymphocytes % Monocytes % Eosinophils % Basophils % Nucleated RBC % PT with INR INR PTT (Actin FS) VBG pH POC VBG pCO2 POC VBG pO2 VBG HCO3 VBG O2 Sat (Rodriguez) VBG Base Excess Sodium Potassium Chloride Carbon Dioxide Anion Gap BUN Creatinine Creat Clearance w eGFR Random Glucose Lactic Acid 0.8 Calcium Phosphorus Magnesium Total Bilirubin AST ALT Alkaline Phosphatase Troponin I 0.68 H* Total Protein Albumin TSH Urine Color Urine Appearance Urine pH Ur Specific [place] Urine Protein Urine Glucose (UA) Urine Ketones Urine Blood Urine Nitrite Urine Bilirubin Urine Urobilinogen Ur Leukocyte Esterase CSF Appearance Clear CSF Color Colorless CSF WBC 1 CSF RBC 10 CSF Neutrophils No Result Required. CSF Lymphocytes No Result Required. CSF Eosinophils No Result Required. CSF Basophils No Result Required. CSF Macrophages No Result Required. CSF Plasma Cells No Result Required. CSF Diff Comment No Result Required. CSF Comment No Result Required. CSF Glucose CSF Total Protein Opiates Screen Methadone Screen Barbiturate Screen Phencyclidine Screen Ur Amphetamines Screen MDMA (Ecstasy) Screen Benzodiazepines Screen Cocaine Screen U Marijuana (THC) Screen Influenza A (Rapid) Influenza B (Rapid) 08/11/18 08/11/18 08/11/18 23:35 23:55 23:55 WBC RBC Hgb Hct MCV MCH MCHC RDW Plt Count MPV Absolute Neuts (auto) Neutrophils % Lymphocytes % Monocytes % Eosinophils % Basophils % Nucleated RBC % PT with INR INR PTT (Actin FS) VBG pH 7.47 H POC VBG pCO2 32.5 L POC VBG pO2 59.4 H VBG HCO3 23.2 VBG O2 Sat (Rodriguez) 91.1 H VBG Base Excess 0.6 Sodium Potassium Chloride Carbon Dioxide Anion Gap BUN Creatinine Creat Clearance w eGFR Random Glucose Lactic Acid Calcium Phosphorus Magnesium Total Bilirubin AST ALT Alkaline Phosphatase Troponin I 0.43 H Total Protein Albumin TSH Urine Color Urine Appearance Urine pH Ur Specific [place] Urine Protein Urine Glucose (UA) Urine Ketones Urine Blood Urine Nitrite Urine Bilirubin Urine Urobilinogen Ur Leukocyte Esterase CSF Appearance CSF Color CSF WBC CSF RBC CSF Neutrophils CSF Lymphocytes CSF Eosinophils CSF Basophils CSF Macrophages CSF Plasma Cells CSF Diff Comment CSF Comment CSF Glucose CSF Total Protein Opiates Screen Negative Methadone Screen Negative Barbiturate Screen Negative Phencyclidine Screen Negative Ur Amphetamines Screen Negative MDMA (Ecstasy) Screen Negative Benzodiazepines Screen Negative Cocaine Screen Negative U Marijuana (THC) Screen Positive A* Influenza A (Rapid) Influenza B (Rapid) 08/12/18 08/12/18 08/12/18 05:30 05:30 09:12 WBC 7.8 RBC 3.98 L Hgb 12.9 Hct 38.1 MCV 95.7 MCH 32.4 MCHC 33.9 RDW 13.8 Plt Count 159 MPV 7.7 Absolute Neuts (auto) 6.8 Neutrophils % 86.5 H Lymphocytes % 9.1 D Monocytes % 4.3 Eosinophils % 0.0 D Basophils % 0.1 Nucleated RBC % 0 PT with INR INR PTT (Actin FS) VBG pH POC VBG pCO2 POC VBG pO2 VBG HCO3 VBG O2 Sat (Rodriguez) VBG Base Excess Sodium 139 Potassium 4.0 Chloride 108 H Carbon Dioxide 22 Anion Gap 10 BUN 13 Creatinine 0.7 Creat Clearance w eGFR 126.21 Random Glucose 156 H Lactic Acid Calcium 7.6 L Phosphorus 2.7 Magnesium 2.3 Total Bilirubin AST ALT Alkaline Phosphatase Troponin I 0.33 H Total Protein Albumin TSH 0.65 Urine Color Urine Appearance Urine pH Ur Specific [place] Urine Protein Urine Glucose (UA) Urine Ketones Urine Blood Urine Nitrite Urine Bilirubin Urine Urobilinogen Ur Leukocyte Esterase CSF Appearance CSF Color CSF WBC CSF RBC CSF Neutrophils CSF Lymphocytes CSF Eosinophils CSF Basophils CSF Macrophages CSF Plasma Cells CSF Diff Comment CSF Comment CSF Glucose CSF Total Protein Opiates Screen Methadone Screen Barbiturate Screen Phencyclidine Screen Ur Amphetamines Screen MDMA (Ecstasy) Screen Benzodiazepines Screen Cocaine Screen U Marijuana (THC) Screen Influenza A (Rapid) Influenza B (Rapid) 08/12/18 09:32 WBC RBC Hgb Hct MCV MCH MCHC RDW Plt Count MPV Absolute Neuts (auto) Neutrophils % Lymphocytes % Monocytes % Eosinophils % Basophils % Nucleated RBC % PT with INR INR PTT (Actin FS) VBG pH POC VBG pCO2 POC VBG pO2 VBG HCO3 VBG O2 Sat (Rodriguez) VBG Base Excess Sodium Potassium Chloride Carbon Dioxide Anion Gap BUN Creatinine Creat Clearance w eGFR Random Glucose Lactic Acid Calcium Phosphorus Magnesium Total Bilirubin AST ALT Alkaline Phosphatase Troponin I Total Protein Albumin TSH Urine Color Yellow Urine Appearance Clear Urine pH 6.5 Ur Specific [place] 1.022 Urine Protein Negative Urine Glucose (UA) Negative Urine Ketones Negative Urine Blood Negative Urine Nitrite Negative Urine Bilirubin Negative Urine Urobilinogen 1.0 Ur Leukocyte Esterase Negative CSF Appearance CSF Color CSF WBC CSF RBC CSF Neutrophils CSF Lymphocytes CSF Eosinophils CSF Basophils CSF Macrophages CSF Plasma Cells CSF Diff Comment CSF Comment CSF Glucose CSF Total Protein Opiates Screen Methadone Screen Barbiturate Screen Phencyclidine Screen Ur Amphetamines Screen MDMA (Ecstasy) Screen Benzodiazepines Screen Cocaine Screen U Marijuana (THC) Screen Influenza A (Rapid) Influenza B (Rapid) Active Medications Current Medications Acetaminophen (Tylenol -) 650 mg PO Q6H PRN PRN Reason: FEVER Last Admin: 08/13/18 06:53 Dose: 650 mg Doxycycline Hyclate 100 mg/ (Dextrose) 100 mls @ 100 mls/hr IVPB BID HAJA Last Admin: 08/15/18 09:49 Dose: 100 mls/hr Ceftriaxone Sodium 2 gm/ (Dextrose) 100 mls @ 200 mls/hr IVPB Q12H HAJA; Protocol Last Admin: 08/15/18 05:28 Dose: 200 mls/hr Sodium Chloride (Normal Saline -) 1,000 mls @ 150 mls/hr IV ASDIR HAJA Last Admin: 08/14/18 21:19 Dose: Not Given Tramadol HCl (Ultram -) 50 mg PO Q6H PRN PRN Reason: PAIN LEVEL 6-10 Last Admin: 08/15/18 09:57 Dose: 50 mg Zolpidem Tartrate (Ambien -) 10 mg PO HS PRN PRN Reason: INSOMNIA ASSESSMENT/PLAN: 38 y.o. M w/ PMHx. of Brugada's syndrome s/p PPM in 2016 presents with 2-3 days of headache, severe neck pain, nausea, and high fever today presenting at 103 #Brugada Syndrome exacerbation Fevers and infection can cause increased pain in Pt.'s with Brugada Troponin 0.68-->0.43-->0.33 Cardiology consult (Dr. Bates) appreciated- Daily EKGs, no ACS at this time, Echo: EF:50-55%, mild TR, mild MR, no pericardial effusions, no valvulopathy #R/o Meningitis LP Negative, however only 2-3 drops of fluid were collected and had 10 RBCs in the high powered field. Head CT - CT Neck and soft tissue C-Spine- No acute pathology Empiric Abx.? #R/o Lyme Disease f/u serology for Lyme Disease, Babesia, Erlichia, and Anaplasma given hx. of camping No rashes on skin noted Empiric Abx.? #FEN Encourage PO intake Monitor electrolytes-keep K+ above 4 and Mag above 2. Regular Diet #DVT Ppx. Lovenox SQ Visit type - Emergency Visit Emergency Visit: Yes ED Registration Date: 08/12/18 Care time: The patient presented to the Emergency Department on the above date and was hospitalized for further evaluation of their emergent condition. - New Patient This patient is new to me today: Yes Date on this admission: 08/12/18 - Critical Care Critical Care patient: No - Discharge Referral Referred to [facility] Med P.C.: No
--- NOTE | 2018-08-12 18:23 | PN ---
Progress Note (short form) - Note Progress Note: ID CONSULT DICTATED R/O MENINGITIS ? TICK-RELATED ILLNESS PANSINUSITIS LP ATTEMPTED BUT UNSUCCESSFUL NEUROLOGY CONSULTED AND SAW PT IN ER MRI WITH CONTRAST ORDERED WILL EMPIRICALLY COVER WITH CEFTRIAXONE/ VANCOMYCIN/ DOXYCYCLINE DISCUSSED WITH FAMILY MEMBER AT BEDSIDE DISCUSSED WITH MEDICAL ATTENDING
[2018-08-12] MEDS: SODIUM CHLORIDE 1,000 ML IV SCH (18:40)
[2018-08-12] MEDS: CEFTRIAXONE 2 GM in DEXTROSE 5%-WATER 100 ML IVPB SCH (18:59)
[2018-08-12 19:08] LABS: BASO % 0.4 % (0-2.0); HEMATOCRIT 36.7 % (35.4-49); HEMOGLOBIN 12.6 GM/dL (11.7-16.9); LYMPH % 13.3 % (8-40); MCH 32.6 pg (25.7-33.7); MCHC 34.2 g/dl (32.0-35.9); MEAN CELL VOLUME 95.2 fl (80-96); MEAN PLT VOLUME 7.9 fl (7.5-11.1); MONO % 7.4 % (3.8-10.2); NEUT % 78.9 % (42.8-82.8); PLATELET COUNT 100 K/MM3 (134-434); RBC 3.85 M/mm3 (4.00-5.60); RDW 13.4 % (11.9-15.9); WHITE BLOOD COUNT 6.4 K/mm3 (4.0-10.0)
[2018-08-12] MEDS ORDERED: CEFTRIAXONE 2 GM/100 ML BAG IVPB ONE (19:14)
--- NOTE | 2018-08-12 19:15 | CON.NEURO ---
Consult Consult Specialty:: NEUROLOGY-GERI MADERA - History of Present Illness History of Present Illness: Patient is a 38 y/o M w/ PMHx Brugada's syndrome s/p PPM in 2016 p/w 2-3 day h/ o headache, severe neck pain, nausea, developed high fever today which prompted ED visit. Had seen urgent care and was prescribed muscle relaxant which he did not take. Febrile to 103, HR 96, otherwise stable vitals on presentation. Toxic appearing on presentation w/ pronounced nuchal rigidity, pain on flexion, and photophobia per ED sign out. LP was performed, retrieved only a few drops of CSF , cell counts 1 WBC and 10 RBC. Tox screen positive for cannabis (Pt admitted to use). Initial troponin 0.68. EKG NSR with normal intervals and QTc. POC echocardiogram was normal per ED signout. Cultures pending. Pt affirms use of haldol and Zyprexa in for issues related to depression but denies any recent use of neuroleptics or anti-depressants, no changes in diet or consumption of high-tyramine foods. Pt affirms "chest tightness" associated with exacerbations of neck pain. Given Acyclovir, ceftriaxone, vancomycin dexamethasone, Ofirmev, Reglan, NS bolus in ED. His aunt afirms above hx. he reports holocephalgic headache, occipital/nuchal, radiates down his neck, that worsens upon coughing+c/o intense photophobia - Past Medical History Cardio/Vascular: Yes: Other (Brugada Syndrome s/p ICD- details unclear at this time) Gastrointestinal: No: Ascites, Cancer, Constipation, Crohn's Disease, Diverticulitis, Diverticulosis, Esophageal Varices, Gastritis, GERD, GI Bleed, Hemorrhoids, Hiatal Hernia, Inflamatory Bowel Disease, Irritable Bowel Disease, Pancreatitis, Peptic Ulcer Disease, Ulcerative Colitis, Other Hepatobiliary: No: Cirrhosis, Cholelithiasis, Cholecystitis, Choledocholithiasis , Hepatitis A, Hepatitis B, Hepatitis C, Other Renal/: No: Renal Failure, Renal Inusuff, BPH, Cancer, Hematuria, Hemodialysis , Neurogenic Bladder, Renal Calculi, UTI, Other Musculoskeletal: No: Bursitis, Chronic low back pain, Hemiparesis, Hemiplegia, Osteoarthritis, Paraplegia, Other Rheumatology: No: Fibromyalgia, Gout, Lupus, Rheumatoid Arthritis, Sarcoidosis, Vasculitis, Other - Alcohol/Substance Use Hx Alcohol Use: No - Smoking History Smoking history: Current every day smoker Aproximately how many cigarettes per day: 20 - Social History History of Recent Travel: No Home Medications - Allergies Allergies/Adverse Reactions: Allergies Allergy/AdvReac Type Severity Reaction Status Date / Time No Known Allergies Allergy Verified 08/11/18 20:09 - Home Medications Home Medications: Ambulatory Orders NK [No Known Home Medication] 08/12/18 Physical Exam-Neuro Vital Signs: Vital Signs Temperature 98.0 F 08/12/18 06:30 Pulse Rate 73 08/12/18 06:30 Respiratory Rate 16 08/12/18 06:30 Blood Pressure 107/60 08/12/18 06:30 O2 Sat by Pulse Oximetry (%) 99 08/12/18 06:30 Labs: CBC, BMP 08/12/18 05:30 INR, PTT INR 1.17 (0.83-1.09) H 08/11/18 21:30 - Neuro Exam Level Of Consciousness: Yes: Alert, Oriented to Person, Oriented to Place, Oriented to Time Eyes: Yes: RAFFY Speech: WNL Dominant Hand: Right Mini Mental Exam: intact att/conc. Cranial Nerves II-XII Intact: Yes Gag: Present DTR's: 2+ Left Bicep, 2+ Right Bicep, 2+ Left Tricep, 2+ Right Tricep, 2+ Left Brachioradialis, 2+ Right Brachioradialis, 2+ Left Achilles, 2+ Right Achilles ( + Brudzinskis sign, +mild neck rigidity) Babinski: Absent Response to light touch: Normal Response to pain prick: Normal Response to temperature: Normal Response to vibration: Normal Motor Strength: 5/5: Left Arm, Right Arm, Left Leg, Right Leg Gait: Deferred Imaging - Results Cat Scan: Report Reviewed (mild-mod right frontal/ethmoid and left ethmoid/ maxillary sinusitis ?/ subacute) Assessment/Plan Pt. with fever, headache, meningeal signs, sinusitis. DDX.includes bact. meningitis(CSF non-contributory towards conf. this dx.) sec.to parameningeal focus of inf.from sinusitis, cerebral venous sinus thrombosis. Suggest: Cont. abx/acyclovir, MRI brain+/-contrast, may need repeat tap. Thank you, Sarah Lopes MD
[2018-08-12] MEDS ORDERED: SODIUM CHLORIDE 1,000 ML IV STA ×2 (19:41→19:42)
--- NOTE | 2018-08-12 19:50 | CONS ---
DATE OF CONSULTATION: DATE OF DICTATION: 08/12/2018 INFECTIOUS DISEASE CONSULTATION HISTORY OF PRESENT ILLNESS: The patient is a 38-year-old male with a history of Brugada syndrome evaluated for possible meningitis. The patient was evaluated in the emergency room after presenting with a several-day history of worsening headache, neck pain, and fever. In the emergency room, patient was noted to have photophobia, fever, and nuchal rigidity. A CAT scan of the head was performed and showed pansinusitis. A lumbar puncture was performed, however was not successful. According to the notes, only a few drops of spinal fluid were obtained and sent for cell count, and analysis showed 1 white cell, 10 red cells. There was no specimen for chemistries, Gram stain, or culture. He was empirically treated with Decadron, vancomycin, ceftriaxone, acyclovir. Since his arrival in the emergency room, patient continues to complain of photophobia, fever, chills, headache, neck pain, and stiffness. He also complains of generalized body ache. The patient denied any ill contacts. According to the notes he had recently camped in [facility], but denied any tick or insect bites. He denies any travel. 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 He denies any ill contacts. He reports being born in [place] and being a lifelong resident. He is up to date with his routine childhood immunizations. His HIV status is not known, however denies risk factors. PAST MEDICAL HISTORY: Positive for Brugada syndrome. PAST SURGICAL HISTORY: Status post permanent pacemaker. ALLERGIES: No known allergies. MEDICATION: No medications. SOCIAL HISTORY: As per HPI. LABORATORY DATA: White count 7.8 with a normal differential. 86 neutrophils, 9 lymphocytes, 4 monocytes. Hematocrit 38.1, platelet count 159, BUN 13, creatinine 0.7. Urinalysis negative. Chest x-ray negative for acute infiltrate. Influenza swab negative. Toxicology screen positive for marijuana. PHYSICAL EXAMINATION: General: On exam, he is awake. He is lying in a position on the stretcher in the emergency room. Vital signs: T-max 103, blood pressure 107/60, pulse 73 regular, respirations 20 per minute. HEENT: Sclerae anicteric. Positive conjunctival injection. Oropharynx no injection or exudate. Neck: Stiff and tender to flexion. No palpable cervical adenopathy. Cardiovascular: Heart sounds S1, S2. No murmur. Lungs: Clear. Abdomen: Soft, nontender. No organomegaly. Extremities: Negative for edema. There is a fine papular rash present on the chest and faint exanthem present on the back. There is no facial rash, no involvement of his . IMPRESSION: 1. Rule out meningitis. 2. Rule out tick related illness. 3. Pansinusitis. Concerned about the possibility of bacterial meningitis in light of parameningeal focus (pansinusitis), also concerned about possible tick-related illness in light of recent camping; however, his labs do not support this. Neurology has been consulted and saw the patient in the emergency room. MRI with contrast ordered. Will empirically cover with ceftriaxone, vancomycin and doxycycline pending workup. Will place on isolation. Case was discussed with patient's aunt present at the time of the examination and with the medical attending Dr. Desouza. DIMITRI MILTON M.D. SREE/[id number]
--- NOTE | 2018-08-12 20:00 | PN ---
Teaching Attending Note Name of Resident: Armani York ATTENDING PHYSICIAN STATEMENT I saw and evaluated the patient. I reviewed the resident's note and discussed the case with the resident. I agree with the resident's findings and plan as documented. SUBJECTIVE: Reported some improvement in neck stiffness and photophobia. No nausea/vomiting. No abdominal pain, no ongoing diarrhea. No cough. OBJECTIVE: Tmax 103, Hemodynamically Stable. Last Vital Signs Temp Pulse Resp BP Pulse Ox 103.0 F H 93 H 21 H 112/56 L 96 08/12/18 19:29 08/12/18 19:29 08/12/18 19:29 08/12/18 19:29 08/12/18 19:29 HEENT - Atraumatic, Normocephalic. No pharyngeal erythema/exudate. No lymphadenopathy. Neck stiffness+ Heart - S1, S2, RRR, SM, AICD site clean, non-tender Lungs - clear to auscultation Abdomen - Soft, non-tender. Bowel Sounds normal Extremities - no edema, no calf tenderness Laboratory Results - last 24 hr 08/11/18 08/11/18 08/11/18 05:30 07:30 20:15 WBC RBC Hgb Hct MCV MCH MCHC RDW Plt Count MPV Absolute Neuts (auto) Neutrophils % Lymphocytes % Monocytes % Eosinophils % Basophils % Nucleated RBC % PT with INR INR PTT (Actin FS) VBG pH POC VBG pCO2 POC VBG pO2 VBG HCO3 VBG O2 Sat (Rodriguez) VBG Base Excess Sodium Potassium Chloride Carbon Dioxide Anion Gap BUN Creatinine Creat Clearance w eGFR Random Glucose Lactic Acid 1.8 Calcium Phosphorus Magnesium Total Bilirubin AST ALT Alkaline Phosphatase Troponin I Total Protein Albumin TSH Urine Color Yellow Urine Appearance Clear Urine pH 5.5 Ur Specific [place] 1.009 L Urine Protein Negative Urine Glucose (UA) Negative Urine Ketones Negative Urine Blood Negative Urine Nitrite Negative Urine Bilirubin Negative Urine Urobilinogen 1.0 Ur Leukocyte Esterase Negative CSF Appearance CSF Color CSF WBC CSF RBC CSF Neutrophils CSF Lymphocytes CSF Eosinophils CSF Basophils CSF Macrophages CSF Plasma Cells CSF Diff Comment CSF Comment CSF Glucose CSF Total Protein Opiates Screen Methadone Screen Barbiturate Screen Phencyclidine Screen Ur Amphetamines Screen MDMA (Ecstasy) Screen Benzodiazepines Screen Cocaine Screen U Marijuana (THC) Screen Influenza A (Rapid) Negative Influenza B (Rapid) Negative 04/25/19 04/25/19 04/25/19 21:30 21:30 21:30 WBC 5.7 RBC 3.88 L Hgb 12.9 Hct 37.1 MCV 95.7 MCH 33.3 MCHC 34.8 RDW 13.7 Plt Count 166 MPV 7.6 Absolute Neuts (auto) 4.4 Neutrophils % 77.1 Lymphocytes % 17.0 Monocytes % 5.5 Eosinophils % 0.1 Basophils % 0.3 Nucleated RBC % 0 PT with INR 13.80 H INR 1.17 H PTT (Actin FS) 32.9 VBG pH POC VBG pCO2 POC VBG pO2 VBG HCO3 VBG O2 Sat (Rodriguez) VBG Base Excess Sodium 134 L Potassium 3.8 Chloride 100 Carbon Dioxide 27 Anion Gap 6 L BUN 16 Creatinine 0.6 Creat Clearance w eGFR 150.78 Random Glucose 83 Lactic Acid Calcium 7.9 L Phosphorus Magnesium Total Bilirubin 0.5 AST 20 ALT 23 Alkaline Phosphatase 56 Troponin I Total Protein 6.6 Albumin 3.2 L TSH Urine Color Urine Appearance Urine pH Ur Specific [place] Urine Protein Urine Glucose (UA) Urine Ketones Urine Blood Urine Nitrite Urine Bilirubin Urine Urobilinogen Ur Leukocyte Esterase CSF Appearance CSF Color CSF WBC CSF RBC CSF Neutrophils CSF Lymphocytes CSF Eosinophils CSF Basophils CSF Macrophages CSF Plasma Cells CSF Diff Comment CSF Comment CSF Glucose CSF Total Protein Opiates Screen Methadone Screen Barbiturate Screen Phencyclidine Screen Ur Amphetamines Screen MDMA (Ecstasy) Screen Benzodiazepines Screen Cocaine Screen U Marijuana (THC) Screen Influenza A (Rapid) Influenza B (Rapid) 08/11/18 08/11/18 08/11/18 21:30 21:30 23:15 WBC RBC Hgb Hct MCV MCH MCHC RDW Plt Count MPV Absolute Neuts (auto) Neutrophils % Lymphocytes % Monocytes % Eosinophils % Basophils % Nucleated RBC % PT with INR INR PTT (Actin FS) VBG pH POC VBG pCO2 POC VBG pO2 VBG HCO3 VBG O2 Sat (Rodriguez) VBG Base Excess Sodium Potassium Chloride Carbon Dioxide Anion Gap BUN Creatinine Creat Clearance w eGFR Random Glucose Lactic Acid 0.8 Calcium Phosphorus Magnesium Total Bilirubin AST ALT Alkaline Phosphatase Troponin I 0.68 H* Total Protein Albumin TSH Urine Color Urine Appearance Urine pH Ur Specific [place] Urine Protein Urine Glucose (UA) Urine Ketones Urine Blood Urine Nitrite Urine Bilirubin Urine Urobilinogen Ur Leukocyte Esterase CSF Appearance Clear CSF Color Colorless CSF WBC 1 CSF RBC 10 CSF Neutrophils No Result Required. CSF Lymphocytes No Result Required. CSF Eosinophils No Result Required. CSF Basophils No Result Required. CSF Macrophages No Result Required. CSF Plasma Cells No Result Required. CSF Diff Comment No Result Required. CSF Comment No Result Required. CSF Glucose CSF Total Protein Opiates Screen Methadone Screen Barbiturate Screen Phencyclidine Screen Ur Amphetamines Screen MDMA (Ecstasy) Screen Benzodiazepines Screen Cocaine Screen U Marijuana (THC) Screen Influenza A (Rapid) Influenza B (Rapid) 08/11/18 08/11/18 08/11/18 23:35 23:55 23:55 WBC RBC Hgb Hct MCV MCH MCHC RDW Plt Count MPV Absolute Neuts (auto) Neutrophils % Lymphocytes % Monocytes % Eosinophils % Basophils % Nucleated RBC % PT with INR INR PTT (Actin FS) VBG pH 7.47 H POC VBG pCO2 32.5 L POC VBG pO2 59.4 H VBG HCO3 23.2 VBG O2 Sat (Rodriguez) 91.1 H VBG Base Excess 0.6 Sodium Potassium Chloride Carbon Dioxide Anion Gap BUN Creatinine Creat Clearance w eGFR Random Glucose Lactic Acid Calcium Phosphorus Magnesium Total Bilirubin AST ALT Alkaline Phosphatase Troponin I 0.43 H Total Protein Albumin TSH Urine Color Urine Appearance Urine pH Ur Specific [place] Urine Protein Urine Glucose (UA) Urine Ketones Urine Blood Urine Nitrite Urine Bilirubin Urine Urobilinogen Ur Leukocyte Esterase CSF Appearance CSF Color CSF WBC CSF RBC CSF Neutrophils CSF Lymphocytes CSF Eosinophils CSF Basophils CSF Macrophages CSF Plasma Cells CSF Diff Comment CSF Comment CSF Glucose CSF Total Protein Opiates Screen Negative Methadone Screen Negative Barbiturate Screen Negative Phencyclidine Screen Negative Ur Amphetamines Screen Negative MDMA (Ecstasy) Screen Negative Benzodiazepines Screen Negative Cocaine Screen Negative U Marijuana (THC) Screen Positive A* Influenza A (Rapid) Influenza B (Rapid) 08/12/18 08/12/18 08/12/18 05:30 05:30 09:12 WBC 7.8 RBC 3.98 L Hgb 12.9 Hct 38.1 MCV 95.7 MCH 32.4 MCHC 33.9 RDW 13.8 Plt Count 159 MPV 7.7 Absolute Neuts (auto) 6.8 Neutrophils % 86.5 H Lymphocytes % 9.1 D Monocytes % 4.3 Eosinophils % 0.0 D Basophils % 0.1 Nucleated RBC % 0 PT with INR INR PTT (Actin FS) VBG pH POC VBG pCO2 POC VBG pO2 VBG HCO3 VBG O2 Sat (Rodriguez) VBG Base Excess Sodium 139 Potassium 4.0 Chloride 108 H Carbon Dioxide 22 Anion Gap 10 BUN 13 Creatinine 0.7 Creat Clearance w eGFR 126.21 Random Glucose 156 H Lactic Acid Calcium 7.6 L Phosphorus 2.7 Magnesium 2.3 Total Bilirubin AST ALT Alkaline Phosphatase Troponin I 0.33 H Total Protein Albumin TSH 0.65 Urine Color Urine Appearance Urine pH Ur Specific [place] Urine Protein Urine Glucose (UA) Urine Ketones Urine Blood Urine Nitrite Urine Bilirubin Urine Urobilinogen Ur Leukocyte Esterase CSF Appearance CSF Color CSF WBC CSF RBC CSF Neutrophils CSF Lymphocytes CSF Eosinophils CSF Basophils CSF Macrophages CSF Plasma Cells CSF Diff Comment CSF Comment CSF Glucose CSF Total Protein Opiates Screen Methadone Screen Barbiturate Screen Phencyclidine Screen Ur Amphetamines Screen MDMA (Ecstasy) Screen Benzodiazepines Screen Cocaine Screen U Marijuana (THC) Screen Influenza A (Rapid) Influenza B (Rapid) 08/12/18 08/12/18 09:32 18:47 WBC 6.4 RBC 3.85 L Hgb 12.6 Hct 36.7 MCV 95.2 MCH 32.6 MCHC 34.2 RDW 13.4 Plt Count 100 L D MPV 7.9 Absolute Neuts (auto) 5.0 Neutrophils % 78.9 Lymphocytes % 13.3 D Monocytes % 7.4 Eosinophils % 0.0 Basophils % 0.4 D Nucleated RBC % 0 PT with INR INR PTT (Actin FS) VBG pH POC VBG pCO2 POC VBG pO2 VBG HCO3 VBG O2 Sat (Rodriguez) VBG Base Excess Sodium Potassium Chloride Carbon Dioxide Anion Gap BUN Creatinine Creat Clearance w eGFR Random Glucose Lactic Acid Calcium Phosphorus Magnesium Total Bilirubin AST ALT Alkaline Phosphatase Troponin I Total Protein Albumin TSH Urine Color Yellow Urine Appearance Clear Urine pH 6.5 Ur Specific [place] 1.022 Urine Protein Negative Urine Glucose (UA) Negative Urine Ketones Negative Urine Blood Negative Urine Nitrite Negative Urine Bilirubin Negative Urine Urobilinogen 1.0 Ur Leukocyte Esterase Negative CSF Appearance CSF Color CSF WBC CSF RBC CSF Neutrophils CSF Lymphocytes CSF Eosinophils CSF Basophils CSF Macrophages CSF Plasma Cells CSF Diff Comment CSF Comment CSF Glucose CSF Total Protein Opiates Screen Methadone Screen Barbiturate Screen Phencyclidine Screen Ur Amphetamines Screen MDMA (Ecstasy) Screen Benzodiazepines Screen Cocaine Screen U Marijuana (THC) Screen Influenza A (Rapid) Influenza B (Rapid) Current Medications Generic Name Dose Route Start Last Admin Trade Name Freq PRN Reason Stop Dose Admin Acetaminophen 650 mg 08/12/18 19:43 Tylenol - PO Q6H PRN FEVER Enoxaparin Sodium 40 mg 08/12/18 10:00 08/12/18 10:25 Lovenox - SQ 40 mg DAILY HAJA Administration Doxycycline Hyclate 100 mg/ 100 mls @ 100 mls/hr 08/12/18 22:00 Dextrose IVPB BID HAJA Ceftriaxone Sodium 2 gm/ 100 mls @ 200 mls/hr 08/12/18 18:15 08/12/18 18:59 Dextrose IVPB 200 mls/hr Q12H HAJA Administration Protocol Vancomycin HCl 1,000 mg in 250 mls @ 166.667 mls/hr 08/12/18 18:15 Vancomycin (Pre-Docked) IVPB Q12H HAJA Protocol Sodium Chloride 1,000 mls @ 150 mls/hr 08/12/18 18:15 08/12/18 18:40 Normal Saline - IV 150 mls/hr ASDIR HAJA Administration Sodium Chloride 1,000 mls @ 1,000 mls/hr 08/12/18 19:41 Normal Saline - IV 08/12/18 20:40 ASDIR STA Sodium Chloride 1,000 mls @ 1,000 mls/hr 08/12/18 19:42 Normal Saline - IV 08/12/18 20:41 ASDIR STA ASSESSMENT AND PLAN: 38 year old male with Brugada's Syndrome s/p ICD 2015 presented 2-3 day history of with headache, neck pain/stiffness, and photophobia, found to have fever up to 103. 1. Sepsis secondary to possible Meningitis ?asceptic/viral. CXR - Neg, CT Head - no acute findings, CT C-Spine - no acute findings. s/p LP (low yield) - CSF analysis revealed clear colorless fluid with WBC of 1 Empirically treated with Dexa, Ceftriaxone, Vanco, Acicilovir ID Consulted - recommend Doxy, Ceftriaxone, Vancomycin Will add Acyclovir. Neuro consulted - recommend MRI. Urine Cx/Blood Cx pending Hx of recent camping - [place] infection serologies including Lyme/Erlichia/ Anaplasma requested. Hemodynamically Stable 2. Elevated Troponin likely secondary to Sepsis - TnI max 0.68 Hx Brugada Syndrome s/p ICD Echo - no valve or lead vegetations, no effusions. Eval by Cardiology - no further intervention required, recommend daily ECGs. DVT Px - Lovenox SQ
[2018-08-12 21:35] LABS: ALBUMIN 2.8 g/dl (3.4-5.0); ALK PHOS 50 U/L (45-117); ANION GAP 9 MMOL/L (8-16); BILIRUBIN,TOTAL 0.6 mg/dL (0.2-1); BLOOD UREA NITROGEN 11 mg/dL (7-18); CALCIUM 7.5 mg/dL (8.5-10.1); CHLORIDE 101 mmol/L (98-107); CO2 24 mmol/L (21-32); CREATININE 0.7 mg/dL (0.55-1.3); GLUCOSE,RANDOM 115 mg/dL (74-106); POTASSIUM 3.7 mmol/L (3.5-5.1); SGOT/AST 17 U/L (15-37); SGPT/ALT 20 U/L (13-61); SODIUM 133 mmol/L (136-145); TOT PROT 6.1 g/dl (6.4-8.2)
[2018-08-12] MEDS: VANCOMYCIN 1 GRAM (PRE-DOCKED) 1,000 MG/250 ML BAG IVPB SCH (22:12)
[2018-08-13] MEDS: ACETAMINOPHEN 325 MG TABLET (FP) PO PRN ×2 (00:49→06:53)
[2018-08-13] MEDS: ACYCLOVIR INJECTION 300 MG in DEXTROSE 5%-WATER - 100 ML IVPB SCH ×3 (01:40→18:20)
[2018-08-13] MEDS: DOXYCYCLINE INJECTION 100 MG in DEXTROSE 5%-WATER - 100 ML IVPB SCH ×3 (03:13→23:45)
[2018-08-13] MEDS ORDERED: PT OWN MED DRAWER 7, Y5N ONE ×4 (06:10→20:40)
[2018-08-13] MEDS: CEFTRIAXONE 2 GM in DEXTROSE 5%-WATER 100 ML IVPB SCH ×2 (06:19→17:28)
[2018-08-13] MEDS: VANCOMYCIN 1 GRAM (PRE-DOCKED) 1,000 MG/250 ML BAG IVPB SCH ×2 (06:20→20:55)
--- NOTE | 2018-08-13 09:06 | PN ---
Progress Note, Physician Chief Complaint: TELE: NSR Denies CP or SOB ID and Neuro notes reviewed. History of Present Illness: remains febrile - Current Medication List Current Medications: Active Medications Acetaminophen (Tylenol -) 650 mg PO Q6H PRN PRN Reason: FEVER Last Admin: 08/13/18 06:53 Dose: 650 mg Enoxaparin Sodium (Lovenox -) 40 mg SQ DAILY HAJA Last Admin: 08/12/18 10:25 Dose: 40 mg Doxycycline Hyclate 100 mg/ (Dextrose) 100 mls @ 100 mls/hr IVPB BID HAJA Last Admin: 08/13/18 03:13 Dose: 100 mls/hr Ceftriaxone Sodium 2 gm/ (Dextrose) 100 mls @ 200 mls/hr IVPB Q12H HAJA; Protocol Last Admin: 08/13/18 06:19 Dose: Not Given Vancomycin HCl (Vancomycin (Pre-Docked)) 1,000 mg in 250 mls @ 166.667 mls/hr IVPB Q12H HAJA; Protocol Last Admin: 08/13/18 06:20 Dose: Not Given Sodium Chloride (Normal Saline -) 1,000 mls @ 150 mls/hr IV ASDIR HAJA Last Admin: 08/12/18 18:40 Dose: 150 mls/hr Acyclovir 300 mg/ Dextrose 106 mls @ 100 mls/hr IVPB Q8H-IV HAJA Last Admin: 08/13/18 01:40 Dose: 100 mls/hr - Objective Vital Signs: Vital Signs Temperature 102.9 F H 08/13/18 06:20 Pulse Rate 111 H 08/13/18 06:20 Respiratory Rate 20 08/13/18 06:20 Blood Pressure 120/60 08/13/18 06:20 O2 Sat by Pulse Oximetry (%) 97 08/13/18 01:14 Constitutional: Yes: No Distress Cardiovascular: Yes: Regular Rate and Rhythm Respiratory: Yes: CTA Bilaterally Gastrointestinal: Yes: Soft (nontender) Edema: No Neurological: Yes: Alert Psychiatric: Yes: WNL Labs: CBC, BMP 08/12/18 18:47 08/12/18 20:55 INR, PTT INR 1.17 (0.83-1.09) H 08/11/18 21:30 - ....Imaging EKG: Image Reviewed Problem List - Problems (1) Fever Code(s): R50.9 - FEVER, UNSPECIFIED Qualifiers: Fever type: unspecified Qualified Code(s): R50.9 - Fever, unspecified (2) Sepsis Code(s): A41.9 - SEPSIS, UNSPECIFIED ORGANISM Qualifiers: Sepsis type: sepsis due to unspecified organism Qualified Code(s): A41.9 - Sepsis, unspecified organism (3) Elevated troponin Code(s): R74.8 - ABNORMAL LEVELS OF OTHER SERUM ENZYMES (4) Brugada syndrome Code(s): I49.8 - OTHER SPECIFIED CARDIAC ARRHYTHMIAS Assessment/Plan IMP: 1. Fever, suspected SIRS/ early sepsis: etiology presently unclear 2. Elevated TnI likely secondary to systemic inflammatory response in setting of #1 3. History of Brugada Sydrome s/p ICD REC: 1. No specific treatment for elevated TnI other than supportive measures: hydration, IV abx and treatment of underlying infection. Patient is asx with no ischemic ECG changes; unlikely represents an acute coronary syndrome. 2. Echo showed normal LV fxn 3. Telemetry monitoring as patients with Brugada syndrome may be vulnerable to ventricular arrhythmias during times of fever/infection 4. Monitor electrolytes daily and keep K+ and Mg2+ > 4 and 2 respectively. 5. Daily ECG 6. D/W Primary team. If MRI cannot be performed here, then recommend transfer to tertiary care center.
[2018-08-13] MEDS ORDERED: DEXTROSE 5%-WATER 100 ML IVPB ONE (09:23)
--- NOTE | 2018-08-13 09:51 | PN ---
Progress Note (short form) - Note Progress Note: still complaining of occipital headache radiating to the forehead also pain at LP site still some photophobia but improved still with fevers and myalgia nonproductive cough alert ate some breakfast-some eggs no travel no sick contacts estranged from and 3 kids denies any insect bites Vital Signs Period Temp Pulse Resp BP Sys/Stewart Pulse Ox Last 24 Hr 100.0 F-103.0 F 93-111 20-21 112-120/56-75 96-100 cor-rrr lungs clear abd soft,nt ext no edema rash has resolved CBC, BMP 08/12/18 18:47 08/12/18 20:55 Microbiology 08/11/18 23:35 Urine - Urine Clean Catch Urine Culture - Final NO GROWTH OBTAINED 08/11/18 21:30 Blood - Peripheral Venous Blood Culture - Preliminary NO GROWTH OBTAINED AFTER 24 HOURS, INCUBATION TO CONTINUE FOR 4 DAYS. 08/11/18 21:35 Blood - Peripheral Venous Blood Culture - Preliminary NO GROWTH OBTAINED AFTER 24 HOURS, INCUBATION TO CONTINUE FOR 4 DAYS. a/p fevers continued headache but improving a bit await neurology input about need for MRI continue vancomycin/ceftriaxone/doxycycline pansinusitis can d/c acyclovir if okay with neurology awaiting todays labs will also test for HIV- patient is agreeable- denies risk factors
[2018-08-13] MEDS: ENOXAPARIN NA (PORCINE) 40 MG/0.4 ML DISP.SYRIN SQ SCH (10:09)
--- NOTE | 2018-08-13 10:49 | PN ---
Teaching Attending Note Name of Resident: Jimmie Roberts ATTENDING PHYSICIAN STATEMENT I saw and evaluated the patient. I reviewed the resident's note and discussed the case with the resident. I agree with the resident's findings and plan as documented. SUBJECTIVE: Ongoing mylagia, neck stiffness, fevers, and photophobia. No nausea/ vomiting. No abdominal pain, no ongoing diarrhea. No cough. OBJECTIVE: Tmax 102.9, Hemodynamically Stable. Last Vital Signs Temp Pulse Resp BP Pulse Ox 98.2 F 83 18 126/66 97 08/13/18 10:05 08/13/18 10:05 08/13/18 10:05 08/13/18 10:05 08/13/18 01:14 HEENT - Atraumatic, Normocephalic. No pharyngeal erythema/exudate. No lymphadenopathy. Neck stiffness+, Photophobia+ Heart - S1, S2, RRR, SM, AICD site clean, non-tender Lungs - clear to auscultation Abdomen - Soft, non-tender. Bowel Sounds normal Extremities - no edema, no calf tenderness Skin - no obvious rash Laboratory Results - last 24 hr 08/12/18 08/12/18 18:47 20:55 WBC 6.4 RBC 3.85 L Hgb 12.6 Hct 36.7 MCV 95.2 MCH 32.6 MCHC 34.2 RDW 13.4 Plt Count 100 L D MPV 7.9 Absolute Neuts (auto) 5.0 Neutrophils % 78.9 Lymphocytes % 13.3 D Monocytes % 7.4 Eosinophils % 0.0 Basophils % 0.4 D Nucleated RBC % 0 Sodium 133 L Potassium 3.7 Chloride 101 Carbon Dioxide 24 Anion Gap 9 BUN 11 Creatinine 0.7 Creat Clearance w eGFR 126.21 Random Glucose 115 H Calcium 7.5 L Total Bilirubin 0.6 AST 17 ALT 20 Alkaline Phosphatase 50 Total Protein 6.1 L Albumin 2.8 L Current Medications Generic Name Dose Route Start Last Admin Trade Name Freq PRN Reason Stop Dose Admin Acetaminophen 650 mg 08/12/18 19:43 08/13/18 06:53 Tylenol - PO 650 mg Q6H PRN Administration FEVER Enoxaparin Sodium 40 mg 08/12/18 10:00 08/13/18 10:09 Lovenox - SQ 40 mg DAILY HAJA Administration Doxycycline Hyclate 100 mg/ 100 mls @ 100 mls/hr 08/12/18 22:00 08/13/18 03: 13 Dextrose IVPB 100 mls/hr BID HAJA Administration Ceftriaxone Sodium 2 gm/ 100 mls @ 200 mls/hr 08/12/18 18:15 08/13/18 06:19 Dextrose IVPB Not Given Q12H HAJA Protocol Vancomycin HCl 1,000 mg in 250 mls @ 166.667 mls/hr 08/12/18 18:15 08/13/18 06:20 Vancomycin (Pre-Docked) IVPB Not Given Q12H HAJA Protocol Sodium Chloride 1,000 mls @ 150 mls/hr 08/12/18 18:15 08/12/18 18:40 Normal Saline - IV 150 mls/hr ASDIR HAJA Administration Acyclovir 300 mg/ Dextrose 106 mls @ 100 mls/hr 08/12/18 20:15 08/13/18 10:09 IVPB 100 mls/hr Q8H-IV HAJA Administration ASSESSMENT AND PLAN: 38 year old male with Brugada's Syndrome s/p ICD 2015 presented 2-3 day history of with headache, neck pain/stiffness, and photophobia, found to have fever up to 103. 1. Sepsis secondary to possible Meningitis +/- Sinusitis CXR - Neg, CT Head - no acute findings, CT C-Spine - no acute findings. s/p LP (low yield) - CSF analysis revealed clear colorless fluid with WBC of 1 Empirically treated with Dexa, Ceftriaxone, Vanco, Acicilovir ID Consulted - recommend Doxy, Ceftriaxone, Vancomycin Acyclovir can be discontinued as per ID. Neuro consulted - patient's ICD precludes MRI study - will do CT Head w/ contrast. Urine Cx pending/Blood Cx negative Hx of recent camping - [place] infection serologies including Lyme/Erlichia/ Anaplasma serology pending. Hemodynamically Stable 2. Elevated Troponin likely secondary to Sepsis - TnI max 0.68 Hx Brugada Syndrome s/p ICD Echo - no valve or lead vegetations, no effusions. Eval by Cardiology - no further intervention required, recommend daily ECGs. DVT Px - Lovenox SQ
[2018-08-13 11:04] LABS: BASO % 0.3 % (0-2.0); HEMATOCRIT 38.3 % (35.4-49); MCH 32.5 pg (25.7-33.7); MCHC 33.9 g/dl (32.0-35.9); MEAN CELL VOLUME 95.8 fl (80-96); MEAN PLT VOLUME 8.2 fl (7.5-11.1); MONO % 9.4 % (3.8-10.2); NEUT % 73.3 % (42.8-82.8); PLATELET COUNT 62 K/MM3 (134-434); RDW 13.8 % (11.9-15.9); WHITE BLOOD COUNT 6.5 K/mm3 (4.0-10.0)
[2018-08-13 11:40] LABS: ALBUMIN 2.5 g/dl (3.4-5.0); ALK PHOS 52 U/L (45-117); ANION GAP 6 MMOL/L (8-16); BILIRUBIN,TOTAL 0.5 mg/dL (0.2-1); BLOOD UREA NITROGEN 11 mg/dL (7-18); CALCIUM 7.6 mg/dL (8.5-10.1); CHLORIDE 104 mmol/L (98-107); CO2 26 mmol/L (21-32); CREATININE 0.6 mg/dL (0.55-1.3); GLUCOSE,RANDOM 124 mg/dL (74-106); POTASSIUM 3.2 mmol/L (3.5-5.1); SGOT/AST 15 U/L (15-37); SGPT/ALT 18 U/L (13-61); SODIUM 136 mmol/L (136-145)
--- NOTE | 2018-08-13 12:06 | PN ---
Physical Exam: SUBJECTIVE: Patient seen and examined at bedside. Complains of generalized weakness. Febrile overnight. Complains of neck pain and hot/cold flashes. reports mild photophobia that has improved since arrival. OBJECTIVE: Vital Signs Period Temp Pulse Resp BP Sys/Stewart Pulse Ox Last 24 Hr 98.2 F-103.0 F 83-111 18-21 112-126/56-75 96-100 GENERAL: A&Ox3, mild distress EYES: PERRLA, EOMI ENT: Moist mucus membranes NECK: No JVD LUNGS: CTA, no wheezes HEART: RRR, no murmurs, ICD in place, ICD site tender ABDOMEN: Soft, nontender, BS present MUSCULOSKELETAL: No CVA Tenderness EXTREMITIES: 2+ pulses, no edema. Laboratory Results - last 24 hr 08/12/18 08/12/18 08/13/18 18:47 20:55 10:35 WBC 6.4 6.5 RBC 3.85 L 4.00 Hgb 12.6 13.0 Hct 36.7 38.3 MCV 95.2 95.8 MCH 32.6 32.5 MCHC 34.2 33.9 RDW 13.4 13.8 Plt Count 100 L D 62 L D MPV 7.9 8.2 Absolute Neuts (auto) 5.0 4.7 Neutrophils % 78.9 73.3 Lymphocytes % 13.3 D 17.0 D Monocytes % 7.4 9.4 Eosinophils % 0.0 0.0 Basophils % 0.4 D 0.3 Nucleated RBC % 0 0 Sodium 133 L Potassium 3.7 Chloride 101 Carbon Dioxide 24 Anion Gap 9 BUN 11 Creatinine 0.7 Creat Clearance w eGFR 126.21 Random Glucose 115 H Calcium 7.5 L Total Bilirubin 0.6 AST 17 ALT 20 Alkaline Phosphatase 50 Creatine Kinase Total Protein 6.1 L Albumin 2.8 L HIV 1&2 Antibody Screen HIV P24 Antigen 08/13/18 08/13/18 08/13/18 10:35 10:35 11:30 WBC RBC Hgb Hct MCV MCH MCHC RDW Plt Count MPV Absolute Neuts (auto) Neutrophils % Lymphocytes % Monocytes % Eosinophils % Basophils % Nucleated RBC % Sodium 136 Potassium 3.2 L Chloride 104 Carbon Dioxide 26 Anion Gap 6 L BUN 11 Creatinine 0.6 Creat Clearance w eGFR 150.78 Random Glucose 124 H Calcium 7.6 L Total Bilirubin 0.5 AST 15 ALT 18 Alkaline Phosphatase 52 Creatine Kinase 28 Total Protein 6.0 L Albumin 2.5 L HIV 1&2 Antibody Screen Negative HIV P24 Antigen Negative Active Medications Generic Name Dose Route Start Last Admin Trade Name Sylvie PRN Reason Stop Dose Admin Acetaminophen 650 mg 08/12/18 19:43 08/13/18 06:53 Tylenol - PO 650 mg Q6H PRN Administration FEVER Doxycycline Hyclate 100 mg/ 100 mls @ 100 mls/hr 08/12/18 22:00 08/13/18 03: 13 Dextrose IVPB 100 mls/hr BID HAJA Administration Ceftriaxone Sodium 2 gm/ 100 mls @ 200 mls/hr 08/12/18 18:15 08/13/18 06:19 Dextrose IVPB Not Given Q12H HAJA Protocol Vancomycin HCl 1,000 mg in 250 mls @ 166.667 mls/hr 08/12/18 18:15 08/13/18 06:20 Vancomycin (Pre-Docked) IVPB Not Given Q12H HAJA Protocol Sodium Chloride 1,000 mls @ 150 mls/hr 08/12/18 18:15 08/12/18 18:40 Normal Saline - IV 150 mls/hr ASDIR HAJA Administration Acyclovir 300 mg/ Dextrose 106 mls @ 100 mls/hr 08/12/18 20:15 08/13/18 10:09 IVPB 100 mls/hr Q8H-IV HAJA Administration ASSESSMENT/PLAN: 38 year old male with a past medical history of Brugada's syndrome s/p PPM in 2016 presents with 2-3 days of headache, severe neck pain, nausea, and high fever today presenting at 103 and admitted for treatment of sepsis of unknown etiology #Sepsis of Unknown etiology: due to neck stiffness, photophobia and headache with the fever, patient is being worked up for meningitis, however the LP was reported to have minimal output of CSF, so results could have been skewed negative. -CT head showed possible sinusitis, so may need to check brain/meninges for abscess -will get CT with contrast -may need MRI, but MRI refused patient with his ICD pacemaker after providing his [employer] card -cultures negative -f/u serology for Lyme Disease, Babesia, Erlichia, and Anaplasma given hx. of camping -continue tx with acyclovir, doxycycline, vancomycin -ID on board -Neuro on board -echo no valvulopathy #Brugada Syndrome: chronic, ICD placed in 2016 -trop peaked -Cardiology consult (Dr. Bates) appreciated -Echo: EF:50-55%, mild TR, mild MR, no pericardial effusions, no valvulopathy #Thrombocytopenia: worse today, platelets 62. Could be a result of sepsis vs HIT -stopped lovenox -ordered HIT antibodies, INR, fibrinogen -continue sepsis treatment #FEN Monitor electrolytes- keep K+ above 4 and Mag above 2. Regular Diet #DVT Ppx. -hold lovenox due to low platelets #Disposition -continue to monitor on med surg Visit type - Emergency Visit Emergency Visit: No - New Patient This patient is new to me today: No - Critical Care Critical Care patient: No
[2018-08-13] MEDS: POTASSIUM CHLORIDE TABS 20 MEQ TABLET.ER (FP) PO SCH ×2 (13:10→21:01)
[2018-08-13 14:15] LABS: INR 1.17 (0.83-1.09); PROTHROMBIN TIME (PATIENT) 13.8 SEC (9.7-13.0)
--- NOTE | 2018-08-13 15:03 | EKG ---
Test Reason : Blood Pressure : / mmHG Vent. Rate : 077 BPM Atrial Rate : 077 BPM P-R Int : 178 ms QRS Dur : 100 ms QT Int : 390 ms P-R-T Axes : 051 068 026 degrees QTc Int : 441 ms NORMAL SINUS RHYTHM NORMAL ECG WHEN COMPARED WITH ECG OF 11-AUG-2018 22:27, NO SIGNIFICANT CHANGE WAS FOUND Confirmed by CHELSI FISHER MD ([id number]) on 08/13/2018 3:02:43 PM Referred By: Shaheed ACEVEDO Confirmed By:CHELSI FISHER MD
[2018-08-13] MEDS: SODIUM CHLORIDE 1,000 ML IV SCH (17:35)
[2018-08-14] MEDS: ACYCLOVIR INJECTION 300 MG in DEXTROSE 5%-WATER - 100 ML IVPB SCH (02:30)
[2018-08-14] MEDS ORDERED: PT OWN MED DRAWER 7, Y5N ONE ×4 (05:09→21:11)
[2018-08-14] MEDS: SODIUM CHLORIDE 1,000 ML IV SCH ×3 (05:12→21:19)
[2018-08-14] MEDS ORDERED: DEXTROSE 5%-WATER 100 ML IVPB ONE ×2 (05:32→16:31)
[2018-08-14] MEDS: CEFTRIAXONE 2 GM in DEXTROSE 5%-WATER 100 ML IVPB SCH ×2 (06:50→17:20)
[2018-08-14] MEDS: VANCOMYCIN 1 GRAM (PRE-DOCKED) 1,000 MG/250 ML BAG IVPB SCH (06:50)
--- NOTE | 2018-08-14 08:38 | PN ---
Progress Note (short form) - Note Progress Note: c/o neck stiffness that is not improved with tylenol. ANAYA has resolved. denies Cp , SOB, fever, chills, N/V/C/D Current Medications Generic Name Dose Route Start Last Admin Trade Name Freq PRN Reason Stop Dose Admin Acetaminophen 650 mg 08/12/18 19:43 08/13/18 06:53 Tylenol - PO 650 mg Q6H PRN Administration FEVER Doxycycline Hyclate 100 mg/ 100 mls @ 100 mls/hr 08/12/18 22:00 08/13/18 23: 45 Dextrose IVPB 100 mls/hr BID HAJA Administration Ceftriaxone Sodium 2 gm/ 100 mls @ 200 mls/hr 08/12/18 18:15 08/14/18 06:50 Dextrose IVPB Not Given Q12H HAJA Protocol Vancomycin HCl 1,000 mg in 250 mls @ 166.667 mls/hr 08/12/18 18:15 08/14/18 06:50 Vancomycin (Pre-Docked) IVPB Not Given Q12H HAJA Protocol Sodium Chloride 1,000 mls @ 150 mls/hr 08/12/18 18:15 08/14/18 05:12 Normal Saline - IV 150 mls/hr ASDIR HAJA Administration Acyclovir 300 mg/ Dextrose 106 mls @ 100 mls/hr 08/12/18 20:15 08/14/18 02:30 IVPB 100 mls/hr Q8H-IV HAJA Administration Last Vital Signs Temp Pulse Resp BP Pulse Ox 97.6 F 74 18 116/73 98 08/14/18 07:42 08/14/18 07:42 08/14/18 07:42 08/14/18 07:42 08/13/18 21:00 General agitated. paranoid refused physical exam Assessment and Plan 38 year old male with Brugada's Syndrome s/p ICD 2016 presented 2-3 day history of with headache, neck pain/stiffness, and photophobia, found to have fever up to 103. 1. Sepsis secondary to possible Meningitis +/- Sinusitis- clinically improved but continues to have neck stiffness. will give tramadol prn. on empiric treatment with Dex/ceftriaxone and vanco. will d/c acyclovir per ID recommendations. will d/c IVF once labs are checked to ensure no JOHAN development from acyclovir. pt intermittently refusing medications because his paranoia that he is being treated as a guinea pig and upset with staff. encouraged him to continue with treatment. CT head done and negative. unable to get MRI due to ICD not being compatible. f/u serologies. LP done in the ER was negative. no cx was obtained due to small sample. HIV negative. ID and Neuro on board 2. Tropinemia- due to sepsis. flat trend of troponins. EKG daily. 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 cardio on board 3. insomnia- ambien HS. explained script will not be given on discharge 4. Brugada syndrome- s/p AICD placement. monitor electrolytes closely. 5. DVT ppx- lovenox 6. spoke with patient with friend present. spoke in detail about current plan and explained indications for treatment. verbalized understanding and plan going forward. Visit type - Emergency Visit Emergency Visit: Yes ED Registration Date: 08/12/18 Care time: The patient presented to the Emergency Department on the above date and was hospitalized for further evaluation of their emergent condition. - New Patient This patient is new to me today: Yes Date on this admission: 08/14/18 - Critical Care Critical Care patient: No - Discharge Referral Referred to [facility] Med P.C.: No
[2018-08-14] MEDS: DOXYCYCLINE INJECTION 100 MG in DEXTROSE 5%-WATER - 100 ML IVPB SCH ×2 (09:39→21:22)
[2018-08-14] MEDS ORDERED: traMADol HCL 50 MG TABLET PO PRN (09:39)
[2018-08-14 11:02] LABS: HEMOGLOBIN 13.3 GM/dL (11.7-16.9); MCH 32.5 pg (25.7-33.7); MCHC 34.2 g/dl (32.0-35.9); MEAN CELL VOLUME 95.2 fl (80-96); MEAN PLT VOLUME 9.1 fl (7.5-11.1); PLATELET COUNT 79 K/MM3 (134-434); RDW 14.1 % (11.9-15.9); WHITE BLOOD COUNT 5.1 K/mm3 (4.0-10.0)
[2018-08-14] MEDS ORDERED: LORazepam 0.5 MG TABLET PO ONE (11:16)
[2018-08-14 11:25] LABS: ALBUMIN 2.6 g/dl (3.4-5.0); ALK PHOS 52 U/L (45-117); ANION GAP 3 MMOL/L (8-16); BILIRUBIN,TOTAL 0.3 mg/dL (0.2-1); BLOOD UREA NITROGEN 11 mg/dL (7-18); CHLORIDE 108 mmol/L (98-107); CO2 26 mmol/L (21-32); CREATININE 0.6 mg/dL (0.55-1.3); GLUCOSE,RANDOM 147 mg/dL (74-106); POTASSIUM 4.1 mmol/L (3.5-5.1); SGOT/AST 18 U/L (15-37); SGPT/ALT 22 U/L (13-61); SODIUM 138 mmol/L (136-145); TOT PROT 6.2 g/dl (6.4-8.2)
--- NOTE | 2018-08-14 12:09 | PN ---
Progress Note, Physician Chief Complaint: fever seems to have subsided No events on tele Checked with [employer]- his device is not MRI compatible - Current Medication List Current Medications: Active Medications Acetaminophen (Tylenol -) 650 mg PO Q6H PRN PRN Reason: FEVER Last Admin: 08/13/18 06:53 Dose: 650 mg Doxycycline Hyclate 100 mg/ (Dextrose) 100 mls @ 100 mls/hr IVPB BID HAJA Last Admin: 08/14/18 09:39 Dose: 100 mls/hr Ceftriaxone Sodium 2 gm/ (Dextrose) 100 mls @ 200 mls/hr IVPB Q12H HAJA; Protocol Last Admin: 08/14/18 06:50 Dose: Not Given Vancomycin HCl (Vancomycin (Pre-Docked)) 1,000 mg in 250 mls @ 166.667 mls/hr IVPB Q12H HAJA; Protocol Last Admin: 08/14/18 06:50 Dose: Not Given Sodium Chloride (Normal Saline -) 1,000 mls @ 150 mls/hr IV ASDIR HAJA Last Admin: 08/14/18 05:12 Dose: 150 mls/hr Tramadol HCl (Ultram -) 50 mg PO Q6H PRN PRN Reason: PAIN LEVEL 6-10 Zolpidem Tartrate (Ambien -) 10 mg PO HS PRN PRN Reason: INSOMNIA - Objective Vital Signs: Vital Signs Temperature 97.6 F 08/14/18 07:42 Pulse Rate 74 08/14/18 07:42 Respiratory Rate 18 08/14/18 09:00 Blood Pressure 116/73 08/14/18 07:42 O2 Sat by Pulse Oximetry (%) 98 08/14/18 09:00 Constitutional: Yes: No Distress, Calm Cardiovascular: Yes: Regular Rate and Rhythm Respiratory: Yes: CTA Bilaterally Gastrointestinal: Yes: Soft Edema: No Neurological: Yes: Alert, Oriented Labs: CBC, BMP 08/14/18 10:35 08/14/18 10:35 INR, PTT INR 1.17 (0.83-1.09) H 08/13/18 12:40 Fibrinogen 472.0 mg/dL (238-498) 08/13/18 12:40 Microbiology 08/11/18 21:35 Blood - Peripheral Venous Blood Culture - Preliminary NO GROWTH OBTAINED AFTER 48 HOURS, INCUBATION TO CONTINUE FOR 3 DAYS. 08/11/18 21:35 Blood - Peripheral Venous Blood Culture - Preliminary NO GROWTH OBTAINED AFTER 24 HOURS, INCUBATION TO CONTINUE FOR 4 DAYS. 08/11/18 21:30 Blood - Peripheral Venous Blood Culture - Preliminary NO GROWTH OBTAINED AFTER 48 HOURS, INCUBATION TO CONTINUE FOR 3 DAYS. 08/11/18 21:30 Blood - Peripheral Venous Blood Culture - Preliminary NO GROWTH OBTAINED AFTER 24 HOURS, INCUBATION TO CONTINUE FOR 4 DAYS. Laboratory Tests 08/11/18 08/12/18 08/12/18 23:55 05:30 05:30 WBC 7.8 Hgb 12.9 Hct Plt Count 159 Sodium 139 Potassium 4.0 BUN Creatinine 0.7 Troponin I 0.43 H 08/12/18 08/12/18 08/12/18 09:12 18:47 20:55 WBC 6.4 Hgb 12.6 Hct 36.7 Plt Count 100 L D Sodium 133 L Potassium 3.7 BUN 11 Creatinine 0.7 Troponin I 0.33 H - ....Imaging EKG: Image Reviewed Problem List - Problems (1) Fever Code(s): R50.9 - FEVER, UNSPECIFIED Qualifiers: Fever type: unspecified Qualified Code(s): R50.9 - Fever, unspecified (2) Sepsis Code(s): A41.9 - SEPSIS, UNSPECIFIED ORGANISM Qualifiers: Sepsis type: sepsis due to unspecified organism Qualified Code(s): A41.9 - Sepsis, unspecified organism (3) Elevated troponin Code(s): R74.8 - ABNORMAL LEVELS OF OTHER SERUM ENZYMES (4) Brugada syndrome Code(s): I49.8 - OTHER SPECIFIED CARDIAC ARRHYTHMIAS Assessment/Plan IMP: 1. Fever, suspected SIRS/ early sepsis: etiology presently unclear- seems clinically improved. 2. Elevated TnI likely secondary to systemic inflammatory response in setting of #1 3. History of Brugada Sydrome s/p ICD REC: 1. No specific treatment for elevated TnI other than supportive measures: hydration, IV abx and treatment of underlying infection. Patient is asx with no ischemic ECG changes; unlikely represents an acute coronary syndrome. 2. Echo showed normal LV fxn 3. Telemetry monitoring as patients with Brugada syndrome may be vulnerable to ventricular arrhythmias during times of fever/infection 4. Monitor electrolytes daily and keep K+ and Mg2+ > 4 and 2 respectively. 6. Cannot have MRI- his ICD is not MRI compatible (d/w [employer]tr[employer] yest)
--- NOTE | 2018-08-14 14:44 | PN ---
Progress Note (short form) - Note Progress Note: headace resolve, still some neck discomfort that he thinks is positional no cough no nausea or vomiting no fever often refusing meds Vital Signs Period Temp Pulse Resp BP Sys/Stewart Pulse Ox Last 24 Hr 97.6 F-98.6 F 64-81 18-18 116-125/60-84 98-98 cor-rrr lungs clear no rash abd soft,nt ext no edema CBC, BMP 08/14/18 10:35 08/14/18 10:35 Microbiology 08/11/18 21:30 Blood - Peripheral Venous Blood Culture - Preliminary NO GROWTH OBTAINED AFTER 48 HOURS, INCUBATION TO CONTINUE FOR 3 DAYS. 08/11/18 21:35 Blood - Peripheral Venous Blood Culture - Preliminary NO GROWTH OBTAINED AFTER 48 HOURS, INCUBATION TO CONTINUE FOR 3 DAYS. 08/11/18 23:35 Urine - Urine Clean Catch Urine Culture - Final NO GROWTH OBTAINED a/p fevers resolved continued headache but improving a bit head ct with contrast negative ?viral syndrome d/c vancomycin continue rocephin/doxycycline pansinusitis thrombocytopenia- improving HIV negative d/w hospitalist
--- NOTE | 2018-08-14 18:07 | PN ---
Progress Note (short form) - Note Progress Note: Denies headache, has minimal neck stiffness, almost no photophobia,appears improved.On abx exam- non -focal CT head+-- contrast reported without abn Likely viral syndrome, given he is improving no further indication for l/ p.Would cont. current rx.
[2018-08-14] MEDS ORDERED: ZOLPIDEM TARTRATE 5 MG TABLET PO PRN (22:00)
[2018-08-14] MEDS ORDERED: LORazepam 1 MG TABLET PO ONE (22:26)
[2018-08-15] MEDS ORDERED: DEXTROSE 5%-WATER 100 ML IVPB ONE ×2 (05:22→15:36)
[2018-08-15] MEDS: CEFTRIAXONE 2 GM in DEXTROSE 5%-WATER 100 ML IVPB SCH ×2 (05:28→17:23)
[2018-08-15 07:18] LABS: ANION GAP 6 MMOL/L (8-16); BLOOD UREA NITROGEN 12 mg/dL (7-18); CALCIUM 7.4 mg/dL (8.5-10.1); CHLORIDE 111 mmol/L (98-107); CO2 22 mmol/L (21-32); CREATININE 0.5 mg/dL (0.55-1.3); GLUCOSE,RANDOM 86 mg/dL (74-106); MAGNESIUM 1.8 mg/dL (1.8-2.4); POTASSIUM 3.9 mmol/L (3.5-5.1); SODIUM 139 mmol/L (136-145)
[2018-08-15] MEDS: DOXYCYCLINE INJECTION 100 MG in DEXTROSE 5%-WATER - 100 ML IVPB SCH ×2 (09:49→22:53)
--- NOTE | 2018-08-15 11:07 | PN ---
Progress Note, Physician Chief Complaint: body aches History of Present Illness: ANAYA persists, body aching diffusely denies cp, palpitations currently concerned that he is waking up feeling like not enough oxygen going to his brain and worried this is from his heart - Current Medication List Current Medications: Active Medications Acetaminophen (Tylenol -) 650 mg PO Q6H PRN PRN Reason: FEVER Last Admin: 08/13/18 06:53 Dose: 650 mg Doxycycline Hyclate 100 mg/ (Dextrose) 100 mls @ 100 mls/hr IVPB BID HAJA Last Admin: 08/15/18 09:49 Dose: 100 mls/hr Ceftriaxone Sodium 2 gm/ (Dextrose) 100 mls @ 200 mls/hr IVPB Q12H HAJA; Protocol Last Admin: 08/15/18 05:28 Dose: 200 mls/hr Sodium Chloride (Normal Saline -) 1,000 mls @ 150 mls/hr IV ASDIR HAJA Last Admin: 08/14/18 21:19 Dose: Not Given Tramadol HCl (Ultram -) 50 mg PO Q6H PRN PRN Reason: PAIN LEVEL 6-10 Last Admin: 08/15/18 09:57 Dose: 50 mg Zolpidem Tartrate (Ambien -) 10 mg PO HS PRN PRN Reason: INSOMNIA - Objective Vital Signs: Vital Signs Temperature 97.7 F 08/15/18 05:44 Pulse Rate 58 L 08/15/18 05:44 Respiratory Rate 18 08/15/18 05:44 Blood Pressure 122/70 08/15/18 05:44 O2 Sat by Pulse Oximetry (%) 99 08/14/18 21:00 Constitutional: Yes: Well Nourished, No Distress, Calm Cardiovascular: Yes: Regular Rate and Rhythm, S1, S2. No: Gallop, Murmur Respiratory: Yes: Regular, CTA Bilaterally. No: Accessory Muscle Use, Rales, Wheezes Extremities: No: Cold Edema: No Neurological: Yes: Alert, Oriented Psychiatric: No: Agitated Labs: CBC, BMP 08/14/18 10:35 08/15/18 05:30 INR, PTT INR 1.17 (0.83-1.09) H 08/13/18 12:40 Fibrinogen 472.0 mg/dL (238-498) 08/13/18 12:40 Assessment/Plan tele: NSR with sinus gemma overnight CXR: clear lungs/pleura Echo: normal LV, RV. valves WNL. no peric effusion IMP: 1. Fever, suspected SIRS/ early sepsis: sinusitis and ? viral syndrome per ID 2. Elevated TnI likely secondary to systemic inflammatory response in setting of #1 3. History of Brugada Sydrome s/p ICD 4. ANAYA--suspected viral syndrome per neuro REC: 1. No specific treatment for elevated TnI other than supportive measures: hydration, IV abx and treatment of underlying infection. Patient is asx with no ischemic ECG changes; unlikely represents an acute coronary syndrome. 2. Echo showed normal LV and RV fxn; pt clinically with no signs of chf including on CXR--observe 3. Continue telemetry monitoring as patients with Brugada syndrome may be vulnerable to ventricular arrhythmias during times of fever/infection--thus far tele without arrhythmic events throughout the hosp stay 4. Monitor electrolytes daily and keep K+ and Mg2+ > 4 and 2 respectively. 6. Cannot have MRI- his ICD is not MRI compatible (d/w [employer]tr[employer] yest)
--- NOTE | 2018-08-15 11:34 | PN ---
Teaching Attending Note Name of Resident: Armani York ATTENDING PHYSICIAN STATEMENT I saw and evaluated the patient. I reviewed the resident's note and discussed the case with the resident. I agree with the resident's findings and plan as documented. SUBJECTIVE: difficult to ascertain improvement as he goes off on tangent of how we can not rely on machines to see if hes improving. does report chills. says his whole body is tight. denies CP, SOB, fever, blurred vision, ANAYA or neck stiffness OBJECTIVE: Last Vital Signs Temp Pulse Resp BP Pulse Ox 97.7 F 58 L 18 122/70 99 08/15/18 05:44 08/15/18 05:44 08/15/18 05:44 08/15/18 05:44 08/14/18 21:00 General NAD, paranoia, agitated HEENT no neck stiffness CV S1 S2 RRR no murmur/rub/gallop Lungs CTA B/L no wheezing/rales/rhonchi ASSESSMENT AND PLAN: 38 year old male with Brugada's Syndrome s/p ICD 2016 presented 2-3 day history of with headache, neck pain/stiffness, and photophobia, found to have fever up to 103. 1. Sepsis secondary to possible Meningitis +/- Sinusitis-likely has a viral syndrome. hard to ascertain improvement as does not give clear answers. vanco and acyclovir d/c yesterday. will need to discuss with ID about abx duration. d/ c IVF. f/u Cx. HIV negative. ID and Neuro on board 2. Sinus bradycardia- noted to have HR in 40's overnight. now stating he sleeps with a machine. likely has ENID. get cpap for tonight 3. thrombocytopenia- due to sepsis vs viral. now improving 4. Tropinemia- due to sepsis. flat trend of troponins. EKG daily. cardio on board 5. insomnia- ambien HS. explained script will not be given on discharge 6. Brugada syndrome- s/p AICD placement. monitor electrolytes closely. 7. DVT ppx- SCD
--- NOTE | 2018-08-15 14:05 | PN ---
Progress Note, Physician History of Present Illness: AWAKE, ALERT NO C/O H/A NECK STIFFNESS BETTER TEMPS REMAIN DOWN AFEBRILE C/S NO GROWTH EXPRESSING PARANOID IDEATION - Current Medication List Current Medications: Active Medications Acetaminophen (Tylenol -) 650 mg PO Q6H PRN PRN Reason: FEVER Last Admin: 08/13/18 06:53 Dose: 650 mg Doxycycline Hyclate 100 mg/ (Dextrose) 100 mls @ 100 mls/hr IVPB BID HAJA Last Admin: 08/15/18 09:49 Dose: 100 mls/hr Ceftriaxone Sodium 2 gm/ (Dextrose) 100 mls @ 200 mls/hr IVPB Q12H HAJA; Protocol Last Admin: 08/15/18 05:28 Dose: 200 mls/hr Sodium Chloride (Normal Saline -) 1,000 mls @ 150 mls/hr IV ASDIR HAJA Last Admin: 08/14/18 21:19 Dose: Not Given Tramadol HCl (Ultram -) 50 mg PO Q6H PRN PRN Reason: PAIN LEVEL 6-10 Last Admin: 08/15/18 09:57 Dose: 50 mg Zolpidem Tartrate (Ambien -) 10 mg PO HS PRN PRN Reason: INSOMNIA - Objective Vital Signs: Vital Signs Temperature 97.7 F 08/15/18 05:44 Pulse Rate 58 L 08/15/18 05:44 Respiratory Rate 18 08/15/18 09:00 Blood Pressure 122/70 08/15/18 05:44 O2 Sat by Pulse Oximetry (%) 99 08/15/18 09:00 Constitutional: Yes: No Distress Eyes: Yes: Conjunctiva Clear Neck: Yes: Supple Cardiovascular: Yes: Regular Rate and Rhythm, S1, S2 Respiratory: Yes: CTA Bilaterally Gastrointestinal: Yes: Normal Bowel Sounds, Soft. No: Tenderness Edema: No Labs: CBC, BMP 08/14/18 10:35 08/15/18 05:30 INR, PTT INR 1.17 (0.83-1.09) H 08/13/18 12:40 Fibrinogen 472.0 mg/dL (238-498) 08/13/18 12:40 Assessment/Plan CLINICALLY IMPROVED ETIOLOGY OF DISEASE PROCESS NOT CLEAR CONTINUE EMPIRIC CEFTRIAXONE/ DOXYCYCLINE IF STABLE PO AUGMENTIN/ DOXYCYCLINE X 10D SOCIAL SERVICE EVALUATION ? PSYCH EVALUATION
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
[2018-08-15] MEDS ORDERED: POTASSIUM CHLORIDE TABS 20 MEQ TABLET.ER (FP) PO ONE (14:54)
[2018-08-15] MEDS ORDERED: MAGNESIUM OXIDE 400 MG TABLET (FP) PO ONE (14:54)
[2018-08-15] MEDS: SODIUM CHLORIDE 1,000 ML IV SCH ×2 (15:57→22:51)
[2018-08-15] MEDS ORDERED: LORazepam 0.5 MG TABLET PO ONE (21:37)
[2018-08-15] MEDS ORDERED: PT OWN MED DRAWER 7, Y5N ONE (22:45)
[2018-08-16] MEDS: ACETAMINOPHEN 325 MG TABLET (FP) PO PRN (01:00)
[2018-08-16] MEDS: HYDROmorphone HCl 2 MG/ML VIAL SQ ONE ×2 (09:33→16:46)
[2018-08-16] MEDS: LORazepam 2 MG/ML SDV VIAL IM ONE ×2 (09:34→16:45)
--- NOTE | 2018-08-16 11:59 | PN ---
Progress Note, Physician History of Present Illness: AWAKE, ALERT NO C/O H/A NECK STIFFNESS BETTER TEMPS REMAIN DOWN AFEBRILE C/S NO GROWTH - Current Medication List Current Medications: Active Medications Acetaminophen (Tylenol -) 650 mg PO Q6H PRN PRN Reason: FEVER Last Admin: 08/16/18 01:00 Dose: 650 mg Doxycycline Hyclate 100 mg/ (Dextrose) 100 mls @ 100 mls/hr IVPB BID HAJA Last Admin: 08/15/18 22:53 Dose: 100 mls/hr Ceftriaxone Sodium 2 gm/ (Dextrose) 100 mls @ 200 mls/hr IVPB Q12H HAJA; Protocol Last Admin: 08/15/18 17:23 Dose: 200 mls/hr Sodium Chloride (Normal Saline -) 1,000 mls @ 150 mls/hr IV ASDIR HAJA Last Admin: 08/15/18 22:51 Dose: Not Given Tramadol HCl (Ultram -) 50 mg PO Q6H PRN PRN Reason: PAIN LEVEL 6-10 Last Admin: 08/15/18 09:57 Dose: 50 mg Zolpidem Tartrate (Ambien -) 10 mg PO HS PRN PRN Reason: INSOMNIA - Objective Vital Signs: Vital Signs Temperature 97.8 F 08/16/18 06:00 Pulse Rate 54 L 08/16/18 06:00 Respiratory Rate 20 08/16/18 06:00 Blood Pressure 115/72 08/16/18 06:00 O2 Sat by Pulse Oximetry (%) 97 08/15/18 21:00 Constitutional: Yes: No Distress Eyes: Yes: Conjunctiva Clear Neck: Yes: Supple Cardiovascular: Yes: Regular Rate and Rhythm, S1, S2 Respiratory: Yes: CTA Bilaterally Gastrointestinal: Yes: Normal Bowel Sounds, Soft. No: Tenderness Labs: CBC, BMP 08/14/18 10:35 08/15/18 05:30 INR, PTT INR 1.17 (0.83-1.09) H 08/13/18 12:40 Fibrinogen 472.0 mg/dL (238-498) 08/13/18 12:40 Assessment/Plan CLINICALLY IMPROVED SUBSTITUTE PO AUGMENTIN/ DOXYCYCLINE X 10D SOCIAL SERVICE EVALUATION DISCUSSED WITH PT AUNT AT BEDSIDE
--- NOTE | 2018-08-16 14:11 | CON.PSY ---
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 patient said he became sick at work. I am not mentally Ill. [facility] 1989 but never been there since then and has never taken any Psych meds. I am ok mentally. I want to go Home. Symptoms: reports: Irritability - Previous Psychiatric Treatment Outpatient: None Inpatient: One prior admission - Previous Substance Abuse Treatment Outpatient: None Inpatient: None - Reason for Previous Treatment Reason for Previous Treatment: Other Drugs - Current Medications Current Medications: Active Medications Acetaminophen (Tylenol -) 650 mg PO Q6H PRN PRN Reason: FEVER Last Admin: 08/16/18 01:00 Dose: 650 mg Amoxicillin/Clavulanate Potassium (Augmentin - 875mg Tablet) 1 tab PO BID@0800, 1730 HAJA Doxycycline Hyclate (Vibramycin -) 100 mg PO BID@1000,1800 HAJA Sodium Chloride (Normal Saline -) 1,000 mls @ 150 mls/hr IV ASDIR HAJA Last Admin: 08/15/18 22:51 Dose: Not Given Tramadol HCl (Ultram -) 50 mg PO Q6H PRN PRN Reason: PAIN LEVEL 6-10 Last Admin: 08/15/18 09:57 Dose: 50 mg Zolpidem Tartrate (Ambien -) 10 mg PO HS PRN PRN Reason: INSOMNIA - Allergies Allergies: Allergies Allergy/AdvReac Type Severity Reaction Status Date / Time No Known Allergies Allergy Verified 08/11/18 20:09 - Current Living Status Usual Living Arrangement: With Parent - Current Mental Status Evaluation Appearance: Well Groomed Attitude: Cooperative - Affect Affect: Full Range Appropriateness: Appropriate to Content - Mood Mood: Irritable - Speech/Language Expressive: Coherent - Psychomotor Activity Psychomotor Activity: Normal - Thought Process Thought Process: Intact - Thought Content Hallucinations: Absent Delusions: Absent - Self Perception Self Perception: No Impairment - Cognition Attention: Alert Orientation: Time Memory, Immediate Recall: Intact Memory, Short Term: 3/3 Memory, Remote with Promptin/3 - Concentration Serial Sevens Intact: Yes Simple Calculations Intact: Yes - Insight Insight: Intact - Impulse Control Impulse Control: Minimally Impaired - Suicidal Ideation Suicidal Ideation: No - Homicidal Ideation Homicidal Ideation: No Assessment/Plan 1) Patient is nit acvutly mentally ill. ) No signs and symptoms of Schiziphrenia or any other Mental illness,. 3) discharge when medically stable. No Psych meds, no follow up needed.
[2018-08-16 14:12] VITALS: BP 114/55; PULSE 68; TEMP 98.2
--- NOTE | 2018-08-16 14:24 | PN ---
Teaching Attending Note Name of Resident: Armani York ATTENDING PHYSICIAN STATEMENT I saw and evaluated the patient. I reviewed the resident's note and discussed the case with the resident. I agree with the resident's findings and plan as documented. SUBJECTIVE:asymptomatic. states neck pain has resolved. no ANAYA. denies Cp, SOB, fever, chills, N/V/C/D noted to have paranoia, pulled out IV sites. refusing IV abx OBJECTIVE: Last Vital Signs Temp Pulse Resp BP Pulse Ox 98.2 F 68 18 114/55 L 97 08/16/18 14:11 08/16/18 14:11 08/16/18 14:11 08/16/18 14:11 08/15/18 21:00 General NAD, HEENT no neck stiffness CV S1 S2 RRR no murmur/rub/gallop Lungs CTA B/L no wheezing/rales/rhonchi ASSESSMENT AND PLAN: 38 year old male with Brugada's Syndrome s/p ICD 2016 presented 2-3 day history of with headache, neck pain/stiffness, and photophobia, found to have fever up to 103. 1. Sepsis secondary to possible Meningitis +/- Sinusitis-has clinically improved. likely had menningitis +- vial syndrome. appears to paranoid and possibly splitting of staff (staff development coordinator rn is incompetent but MD are all good). will have psych evalaute to see if underlying psychosis or personality disorderd. will transition to po abx as refusing IV. doxy/augmentin [id number]. all cx NGTD. ID and Neuro on board 2. Sinus bradycardia-resolved 3. thrombocytopenia- due to sepsis vs viral. now improving 4. Tropinemia- due to sepsis. flat trend of troponins. EKG daily. cardio on board 5. insomnia- ambien HS. explained script will not be given on discharge 6. Brugada syndrome- s/p AICD placement. monitor electrolytes closely. 7. DVT ppx- SCD 8. if cleared by pysch can d/c home on oral abx [id number]. encouraged to f/u with PMD as outpatient for final results of all viral workup
--- NOTE | 2018-08-16 16:46 | DS ---
Physical Exam: SUBJECTIVE: Patient seen and examined. Overnight Pt. upset that IV infiltrated, states that his left forearm in the flexor aspect is burning. Pt. refusing IV replacement and states he would like to speak with Miriam the supervising nurse. OBJECTIVE: Vital Signs Period Temp Pulse Resp BP Sys/Stewart Pulse Ox Last 24 Hr 97.4 F-98.2 F 54-68 18-20 114-126/55-77 97 PHYSICAL EXAM GENERAL: The patient is awake, alert, and fully oriented, in no acute distress. HEAD: Normal with no signs of trauma. EYES: Sclera anicteric, conjunctiva clear. ENT: Ears normal, nares patent, oropharynx clear without exudates, moist mucous membranes. NECK: Trachea midline, full range of motion, supple. LUNGS: Breath sounds equal, clear to auscultation bilaterally, no wheezes, no crackles, no accessory muscle use. HEART: Regular rate and rhythm, S1, S2 without murmur, rub or gallop. ABDOMEN: Soft, nontender, nondistended, normoactive bowel sounds, no guarding, no rebound, no hepatosplenomegaly, no masses. EXTREMITIES: 2+ radial pulses, no calf tenderness, warm, well-perfused, no edema. Forearm mildly erythematous, tender to palpation in the antecubital fossa , no edema noted. NEUROLOGICAL: Normal speech, gait not observed. PSYCH: Normal mood, normal affect. SKIN: Warm, dry, normal turgor LABS HOSPITAL COURSE: Date of Admission:08/12/18 Date of Discharge: 08/16/18 38 y.o. M w/ PMHx. of Brugada's syndrome s/p PPM in 2016 presents with 2-3 days of headache, severe neck pain, nausea, and high fever to 103 on admission. #Brugada Syndrome exacerbation Fevers and infection can cause increased pain in Pt.'s with Brugada Troponin 0.68-->0.43-->0.33 Cardiology consult (Dr. Bates) appreciated- Daily EKGs, no ACS at this time, Echo: EF:50-55%, mild TR, mild MR, no pericardial effusions, no valvulopathy HIV negative May have component of paranoia 2/2 schizophrenia (11.6% of patients with Brugada pattern ECGs vs. 1.1 -2.4% of Pts.s without). Will recommend Psychiatric evaluation as outpatient--> Pt. amenable to seeing a psychiatrist (preferably someone in this area of [place]). #R/o Meningitis LP Negative, however only 2-3 drops of fluid were collected and had 10 RBCs in the high powered field. Head CT - CT Neck and soft tissue C-Spine- No acute pathology, chronic inflammation of the right ethmoid, frontal and maxillary sinuses. c/w Doxycyline and Ceftriaxone ID Consult (Dr. Willis) appreciated- can switch to PO Augmentin and Doxycyline for 10 days when stable #R/o Tick Borne Illness f/u serology for Babesia, Erlichia, and Anaplasma given hx. of camping; Lyme Abs Negative. No rashes on skin noted by myself on intial examination. Rash noted on abdomen per Infectious Disease on subsequent encounter c/w Abx. 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 will give CPAP tonight #FEN c/w NS @ 150, encourage PO intake Monitor electrolytes-keep K+ above 4 and Mag above 2. Regular Diet #DVT Ppx. Lovenox SQ #Dispo Homeless, SW recommendations appreciated for fdc and information regarding follow-up. Discharge Summary Reason For Visit: FEVER,ELEVATED TROPONIN LEVEL Condition: Stable - Instructions Diet, Activity, Other Instructions: You came in for headache, neck pain, nausea, photophobia and high fever. We treated you for Meningitis with fluids and antibiotics We are starting you on Augmentin 875mg TWICE a day for 10 days We are starting you on Doxycycline 100mg TWICE day for 10 days. We believe that you would benefit from speaking with a psychiatrist. This specialist would be able to prescribe you medications to treat your anxiety, depression and other psychiatric conditions. Please follow up with your Primary Care doctor in 1 week, if you do not have one one has been provided for you. Please follow up with your Brands Editor, Dr. Bates within 1 week. Please follow up with your Neurologist, Dr. Lopes, within 1 week. Please follow up with your Psychiatrist, Dr. Art, within 1 week. Please return to the ED if you are having chest pain, fever, chills, worsening shortness of breath or concerning symptoms Referrals: Yo Kaur MD [Staff Physician] - 1 Week Loren Art MD [Staff Physician] - 1 Week Fareed Bates MD [Staff Physician] - 1 Week Joanna Lopes MD [Staff Physician] - 1 Week Disposition: HOME - Home Medications Comprehensive Discharge Medication List: Ambulatory Orders NK [No Known Home Medication] 08/12/18 - Discharge Referral Referred to [facility] Med P.C.: No
[2018-08-16] MEDS ORDERED: AMOX TR/POT CLAV 875MG/125MG TABLETS (FP) PO SCH (17:30)
[2018-08-16] MEDS ORDERED: DOXYCYCLINE HYCLATE 100 MG CAPSULE PO SCH (18:00)
[2018-08-17 15:13] LABS: E. chaff IgG Negative (Neg:<1:64)
[2018-08-18 17:14] LABS: E. chaffeensis Negative (Negative)
== END 2018-08-16 15:42 | disposition home or self-care (01) | DRG 720 ==
LOC: JER 19:52 → JERBED 08-12 00:20 → J4S 08-13 00:18
PROVIDERS: ADMIT Internal Medicine; ATTEND Internal Medicine
PROC: 009U3ZX Drainage of Spinal Canal, Percutaneous Approach, Diagnostic (ICD-10-PCS; principal; 2018-08-12)
DX: A41.89 Other specified sepsis (principal); D69.6 Thrombocytopenia, unspecified; G03.9 Meningitis, unspecified; E88.09 Other disorders of plasma-protein metabolism, not elsewhere classified; G47.00 Insomnia, unspecified; I49.8 Other specified cardiac arrhythmias; J32.4 Chronic pansinusitis; H53.149 Visual discomfort, unspecified; Z95.810 Presence of automatic (implantable) cardiac defibrillator; F12.10 Cannabis abuse, uncomplicated; R51 Headache; Z59.0 Homelessness; R79.89 Other specified abnormal findings of blood chemistry
CPT/HCPCS: 36415; 70450-TC; 70470-TC; 71045-TC-FY; 72125-TC; 80048; 80053; 80307; 81003; 82542; 82550; 82803; 82930; 82945; 83605; 83735; 84100; 84157; 84443; 84484; 85025; 85027; 85362; 85384; 85610; 85730; 86022; 86618; 86666; 87040; 87086; 87389; 87804; 93005; 93010; 93306-TC; 97116-GP; 97161-GP; 99284-25; J0131; J1100; J7030

== ENCOUNTER 2019-04-07 13:18 | Emergency (ER) | payer OTHER ==
[2019-04-07 13:49] VITALS: BP 142/80; PULSE 65; TEMP 97.9; BMI 19.2
--- NOTE | 2019-04-07 15:07 | PDOC ---
History of Present Illness - General Chief Complaint: Pain Stated Complaint: PAIN Time Seen by Provider: 04/07/19 14:27 - History of Present Illness Initial Comments: HPI: 38yo M with PMH of Brugada Syndrome s/p PM/ICD placement in 2016, bipolar/ schizophrenia (nonadherent to medications x 1 month) presenting with weakness and nonspecific body pain. Patient states he has pain "all over" including his chest and back. Reports 25 minutes of chest pain this morning that went away on its own. Denies sick contacts or recent travel. Does not believe his ICD has discharged. States he has been under significant stress: "I feel disorganized." No SI/HI. Denies audio/visual hallucinations. PCP: does not know the name Cardio: Dr. Bates ROS: Constitutional: no fever, +chills HEENT: no throat pain, no dysphagia Cardiovascular: no leg swelling, no palpitations Respiratory: no cough, no shortness of breath Gastrointestinal: no abdominal pain, no diarrhea Genitourinary: no dysuria, no hematuria Musculoskeletal: no myalgia, no arthralgia Skin: no rash, no itching Neurologic: no syncope, +weakness PE: General: Awake, alert, and fully oriented, labile affect, anxious Head: No signs of trauma Eyes: EOMI, sclera anicteric ENT: Moist mucus membranes Neck: Normal ROM, supple Lungs: Lungs clear, Normal breath sounds Cardio: Regular rhythm, S1 and S2 present Abdomen: Soft, nontender, nondistended. No guarding, no rebound, no masses Extremities: Normal range of motion, Distal pulses present SKIN: Warm, Dry, normal turgor Neurologic: Cranial nerves II through XII grossly intact. ED Course/MDM: DDX including but not limited to psych/medication non-adherence, ACS, Brugada, Pacemaker problem, anemia, metabolic derangement Labs, EKG, CXR Though patient is noncompliant with psychiatric medication, no emergent psychiatric intervention warranted at this time Patient became upset in middle of physical exam: "I don't like to be interrogated. I just want to feel better. I don't like being touched." Per his request, I left the room before completing exam. Will check on patient when he is ready 04/07/19 15:07 Patient calmer. Completed exam. Patient upset at hearing about plan for pacemaker interrogation: "I just came in for the basic stuff. I don't want the runaround" Requetsed to speak with another provider. Dr. Lombardi will speak with the patient. 04/07/19 15:56 Patient declined pacemaker interrogation. We will obtain labs, CXR Will reassess 04/07/19 16:05 Patient asked to leave the hospital stating "I did not come here for all this stuff. Madame, you are making me angry." Patient is of sound mind and has capacity to make decisions. Benefits/risks explained to patient and they voiced understanding. Patient decided to leave against medical advice. To sign AMA form. Patient refused to sign AMA form. Left the department. 04/07/19 16:26 Past History - Past Medical History Allergies/Adverse Reactions: Allergies Allergy/AdvReac Type Severity Reaction Status Date / Time No Known Allergies Allergy Verified 08/11/18 20:09 Home Medications: Ambulatory Orders NK [No Known Home Medication] 08/12/18 Cardiac Disorders: Yes (pacemaker/defibrillar 2016 brugada syndrome) COPD: No - Surgical History Cardiac Surgery: Yes (aicd) - Psycho Social/Smoking Cessation Hx Smoking History: Current every day smoker Have you smoked in the past 12 months: Yes Number of Cigarettes Smoked Daily: 4 Information on smoking cessation initiated: No 'Breaking Loose' booklet given: 08/13/18 Hx Alcohol Use: No Drug/Substance Use Hx: No Substance Use Type: Marijuana Hx Substance Use Treatment: No *Physical Exam - Vital Signs Last Vital Signs Temp Pulse Resp BP Pulse Ox 97.9 F 65 18 142/80 100 04/07/19 13:44 04/07/19 13:44 04/07/19 13:44 04/07/19 13:44 04/07/19 13:44 ED Treatment Course - RADIOLOGY Radiology Studies Ordered: Category Date Time Status CHEST PA & LAT [RAD] Stat Radiology 04/07/19 15:06 Ordered Discharge - Discharge Information Problems reviewed: Yes Clinical Impression/Diagnosis: Weakness Condition: Stable Disposition: AGAINST MEDICAL ADVICE - Follow up/Referral Referrals: Mane Cazares MD [Primary Care Provider] - - Patient Discharge Instructions Additional Instructions: As discussed you may have undiagnosed illness or medical diagnosis that if left untreated can lead to multiple complications including, but not limited to permanent disability and . Should you reconsider you should return to the emergency department for evaluation. - Post Discharge Activity
[2019-04-07] MEDS ORDERED: KETOROLAC TROMETHAMINE 30 MG/1 ML VIAL IVPUSH ONE (15:55)
[2019-04-07] MEDS ORDERED: KETOROLAC TROMETHAMINE 30 MG/1 ML VIAL ONE (16:19)
--- NOTE | 2019-04-07 16:23 | PDOC ---
Attending Attestation - Resident Resident Name: Mariama Colby - ED Attending Attestation I have performed the following: I have examined & evaluated the patient, The case was reviewed & discussed with the resident, I agree w/resident's findings & plan, Exceptions are as noted - HPI HPI: 04/07/19 16:16 38yo M with PMH of Brugada Syndrome s/p PM/ICD placement in 2016, bipolar/ schizophrenia, presenting with weakness and nonspecific body pain. Pt reports 1 day of total body pain. He adamantly denies CP/SOB. Denies any palpitations. Denies F/C. When asked where the pain is greatest, pt reports "the body". Denies abdominal pain. Denies N/V/D. - Physicial Exam PE: 04/07/19 16:23 "GENERAL: Awake, alert, and fully oriented, in no acute distress. HEAD: No signs of trauma EYES: PERRLA, EOMI, sclera anicteric, conjunctiva clear ENT: Auricles normal inspection, hearing grossly normal, nares patent, oropharynx clear without exudates. Moist mucosa NECK: Nontender, no stepoffs, Normal ROM, supple, no lymphadenopathy, JVD, or masses LUNGS: Breath sounds equal, clear to auscultation bilaterally. No wheezes, and no crackles HEART: Regular rate and rhythm, normal S1 and S2, no murmurs, rubs or gallops ABDOMEN: Soft, nontender, normoactive bowel sounds. No guarding, no rebound. No masses EXTREMITIES: Normal range of motion, no edema. No clubbing or cyanosis. No cords, erythema, or tenderness NEUROLOGICAL: Cranial nerves II through XII intact. 5/5 strength and sensation in all extremities, Normal speech, normal gait, normal cerebellar function SKIN: Warm, Dry, normal turgor, no rashes or lesions noted. - Medical Decision Making 04/07/19 16:23 38 M with body pain. Pt with normal physical exam, normal vitals. EKG without any acute changes. - Labs, CXR - Toradol 04/07/19 16:25 Pt refusing any work up and wishes to leave prior to completion of his evaluation. The patient is clinically sober, free from distracting injury, appears to have intact insight and judgment and reason and in my opinion has the capacity to make decisions. The patient presented with body pain. I have explained that I am concerned that this may represent a serious illness; they have verbalized an understanding of my concerns. I have discussed the need for labwork and imaging to get more information about potential causes of the patients pain. I have told the patient that if they leave, they could get much worse, could become critically ill, and could possibly become disabled or . I have offered to give the patient more pain medication. He is refusing any further care and is leaving against medical advice. I am unable to convince the patient to stay, I have asked them to return as soon as possible to complete their evaluation. I have answered all their questions.
--- NOTE | 2019-04-08 14:20 | EKG ---
Test Reason : Blood Pressure : / mmHG Vent. Rate : 056 BPM Atrial Rate : 056 BPM P-R Int : 184 ms QRS Dur : 084 ms QT Int : 402 ms P-R-T Axes : 039 053 024 degrees QTc Int : 387 ms POOR DATA QUALITY, INTERPRETATION MAY BE ADVERSELY AFFECTED SINUS BRADYCARDIA BORDERLINE ECG WHEN COMPARED WITH ECG OF 13-AUG-2018 09:18, QT HAS SHORTENED Confirmed by JULEE HENDERSON MD ([id number]) on 04/08/2019 2:20:04 PM Referred By: Confirmed By:JULEE HENDERSON MD
== END 2019-04-07 16:30 | disposition left against medical advice (07) ==
LOC: JER 13:18
DX: R53.1 Weakness (principal); I49.8 Other specified cardiac arrhythmias; Z95.810 Presence of automatic (implantable) cardiac defibrillator; F17.210 Nicotine dependence, cigarettes, uncomplicated; F31.9 Bipolar disorder, unspecified; F20.9 Schizophrenia, unspecified; Z91.14 Patient's other noncompliance with medication regimen
CPT/HCPCS: 93005; 93010; 99284-25